=== PATIENT | female | born 1990 | race Caucasian/White ===

== ENCOUNTER 2017-03-06 15:04 | Inpatient (IN) | payer BC ==
[~2017-03-06] VITALS: Ht 162.6 cm; Wt 102.1 kg
[2017-03-06 15:10] VITALS: BP 130/81
--- NOTE | 2017-03-06 15:24 | Emergency Room Report ---
History of Present Illness General Chief Complaint: Skin Rash/Abscess Source: Patient Present Illness HPI 26-year-old female presents to the emergency department for recurrent hydradenitis suppurativa comprised of erythema, tenderness, and inflammation of the bilateral axilla that is not responsive to oral antibiotic medications. Patient has been referred for surgical intervention as well as IV antibiotics. She denies fevers, chills, nausea, vomiting. Patient denies . She denies taking blood thinning medications. Denies numbness tingling or loss of sensation or gross motor movements of the extremities, incontinence of bowel or bladder. Denies CP, Palpitations, LOC, AMS, dizziness, Changes in Vision, Sensation, paresthesias, or a sudden severe headache. Allergies: Coded Allergies: SULFA (SULFONAMIDE ANTIBIOTICS) (Verified Allergy, Unknown, 03/06/17) Patient History Past Medical History: see triage record Past Surgical History: none Pertinent Family History: none Now: No Reviewed Nursing Documentation: PMH: Agreed, PSxH: Agreed Nursing Documentation-PMH Hx Cardiac Problems: No - hidradenitis suppurativa Review of Systems All Other Systems: negative except mentioned in HPI Physical Exam Vital Signs Date Time Temp Pulse Resp B/P (MAP) Pulse Ox O2 Delivery O2 Flow Rate FiO2 03/06/17 15:10 98.6 89 20 130/81 99 Room Air Sp02 EP Interpretation: reviewed, normal General Appearance: no apparent distress, alert, GCS 15, non-toxic Head: normocephalic, atraumatic Eyes: bilateral eye normal inspection, bilateral eye PERRL ENT: hearing grossly normal, normal voice Neck: full range of motion Respiratory: lungs clear, normal breath sounds, speaking full sentences Cardiovascular #1: regular rate, rhythm Musculoskeletal: back normal, gait/station normal, normal range of motion, non- tender Neurologic: alert, oriented x3, responsive, motor strength/tone normal, sensory intact, speech normal, grossly normal Psychiatric: judgement/insight normal Skin: normal color, warm/dry, well hydrated, other - multiple abscesses with tunneling noted to the bilateral axilla. erythema and tenderness. Medical Decision Making PA Attestation Dr. rutledge is my supervising Physician whom patient management has been discussed with. Diagnostic Impression: Primary Impression: Hidradenitis suppurativa Additional Impression: Abscesses of both axillae ER Course 26-year-old female presents to the emergency department for recurrent hydradenitis suppurativa comprised of erythema, tenderness, and inflammation of the bilateral axilla that is not responsive to oral antibiotic medications. Patient has been referred for surgical intervention as well as IV antibiotics. She denies fevers, chills, nausea, vomiting. Patient denies . She denies taking blood thinning medications. Denies numbness tingling or loss of sensation or gross motor movements of the extremities, incontinence of bowel or bladder. Denies CP, Palpitations, LOC, AMS, dizziness, Changes in Vision, Sensation, paresthesias, or a sudden severe headache. Ddx considered but are not limited to cellulitis, hydradenitis Suppurativa, fracture, d/L, gout, abscess Vital signs: are WNL, pt. is afebrile H&PE are most consistent with Vulval hydradenitis Suppurativa requiring direct admission for surgical or IV abx management. ORDERS: -Gen. preop labwork: CBC, CMP, PT/PTT, Type and Screen.-- Lab results are unremarkable, patient is blood type B+, normal coags. Blood cultures are pending Ek Bpm NSR. ED INTERVENTIONS: -1 Liter NS IV. DISPOSITION: at this time pt. will be admitted to Dr. Huber for hydradenitis Suppurativa. Dr. Huber agreed to admit the pt. and to continue pt. care management. Labs Test 03/06/17 15:40 White Blood Count 8.6 K/UL (4.8-10.8) Red Blood Count 4.25 M/UL (4.20-5.40) Hemoglobin 13.1 G/DL (12.0-16.0) Hematocrit 41.2 % (37.0-47.0) Mean Corpuscular Volume 97 FL (80-99) Mean Corpuscular Hemoglobin 30.7 PG (27.0-31.0) Mean Corpuscular Hemoglobin Concent 31.7 G/DL (32.0-36.0) Red Cell Distribution Width 12.4 % (11.6-14.8) Platelet Count 387 K/UL (150-450) Mean Platelet Volume 6.4 FL (6.5-10.1) Neutrophils (%) (Auto) 55.8 % (45.0-75.0) Lymphocytes (%) (Auto) 35.4 % (20.0-45.0) Monocytes (%) (Auto) 6.0 % (1.0-10.0) Eosinophils (%) (Auto) 1.6 % (0.0-3.0) Basophils (%) (Auto) 1.2 % (0.0-2.0) Prothrombin Time 9.4 SEC (9.30-11.50) Prothromb Time International Ratio 0.9 (0.9-1.1) Activated Partial Thromboplast Time 25 SEC (23-33) Urine Color Pale yellow Urine Appearance Clear Urine pH 6 (4.5-8.0) Urine Specific [place] 1.020 (1.005-1.035) Urine Protein Negative (NEGATIVE) Urine Glucose (UA) Negative (NEGATIVE) Urine Ketones Negative (NEGATIVE) Urine Occult Blood 2+ (NEGATIVE) Urine Nitrite Negative (NEGATIVE) Urine Bilirubin Negative (NEGATIVE) Urine Urobilinogen Normal MG/DL (0.0-1.0) Urine Leukocyte Esterase Negative (NEGATIVE) Urine RBC 5-10 /HPF (0 - 2) Urine WBC 2-4 /HPF (0 - 2) Urine Squamous Epithelial Cells Few /LPF (NONE/OCC) Urine Bacteria Few /HPF (NONE) Urine HCG, Qualitative Negative Sodium Level 142 MMOL/L (136-145) Potassium Level 4.4 MMOL/L (3.5-5.1) Chloride Level 106 MMOL/L (98-107) Carbon Dioxide Level 25 MMOL/L (21-32) Anion Gap 11 mmol/L (5-15) Blood Urea Nitrogen 12 mg/dL (7-18) Creatinine 0.8 MG/DL (0.55-1.30) Estimat Glomerular Filtration Rate > 60 mL/min (>60) Glucose Level 83 MG/DL (74-106) Lactic Acid Level 1.50 mmol/L (0.66-2.22) Calcium Level 9.0 MG/DL (8.5-10.1) Total Bilirubin 0.3 MG/DL (0.2-1.0) Aspartate Amino Transf (AST/SGOT) 37 U/L (15-37) Alanine Aminotransferase (ALT/SGPT) 24 U/L (12-78) Alkaline Phosphatase 66 U/L (46-116) Total Protein 8.7 G/DL (6.4-8.2) Albumin 3.5 G/DL (3.4-5.0) Globulin 5.2 g/dL Albumin/Globulin Ratio 0.7 (1.0-2.7) EKG Diagnostic Results EP Interpretation: Dr. Taylor Rate: normal - 80 bpm Rhythm: NSR ST Segments: no acute changes ASA given to the pt in ED: No PA Scribe Text this interpretation was scribed by KEILY Santiago Last Vital Signs Date Time Temp Pulse Resp B/P (MAP) Pulse Ox O2 Delivery O2 Flow Rate FiO2 03/06/17 15:10 98.6 89 20 130/81 99 Room Air Disposition: ADMITTED INPATIENT Condition: Serious Deepika Santiago Mar 06, 2017 15:24
[2017-03-06 16:26] LABS: BASOPHILS % (AUTO) 1.2 % (0.0-2.0); EOSINOPHILS % (AUTO) 1.6 % (0.0-3.0); HEMATOCRIT 41.2 % (37.0-47.0); HEMOGLOBIN 13.1 G/DL (12.0-16.0); LYMPHOCYTES % (AUTO) 35.4 % (20.0-45.0); MEAN CORPUSCULAR VOLUME 97 FL (80-99); NEUTROPHILS % (AUTO) 55.8 % (45.0-75.0); PLATELET COUNT 387 K/UL (150-450); RED BLOOD COUNT 4.25 M/UL (4.20-5.40); RED CELL DISTRIBUTION WIDTH 12.4 % (11.6-14.8); WHITE BLOOD COUNT 8.6 K/UL (4.8-10.8)
[2017-03-06 16:30] LABS: APPEARANCE,URINE CLEAR; BILIRUBIN, URINE NEGATIVE (NEGATIVE); COLOR,URINE PALE YELLOW; GLUCOSE, URINE (UA) NEGATIVE (NEGATIVE); KETONES,URINE NEGATIVE (NEGATIVE); LEUKOCYTE ESTERASE ,URINE NEGATIVE (NEGATIVE); NITRITE,URINE NEGATIVE (NEGATIVE); PH,URINE 6 (4.5-8.0); PROTEIN,URINE NEGATIVE (NEGATIVE); UROBILINOGEN,URINE NORMAL MG/DL (0.0-1.0)
[2017-03-06 16:33] LABS: ANION GAP 11 mmol/L (5-15); BLOOD UREA NITROGEN 12 mg/dL (7-18); CARBON DIOXIDE 25 MMOL/L (21-32); CHLORIDE 106 MMOL/L (98-107); CREATININE 0.8 MG/DL (0.55-1.30); POTASSIUM 4.4 MMOL/L (3.5-5.1); SODIUM 142 MMOL/L (136-145)
[2017-03-06 16:34] LABS: INR 0.9 (0.9-1.1)
[2017-03-06 16:39] LABS: ALANINE AMINOTRANSFERASE 24 U/L (12-78); ALBUMIN 3.5 G/DL (3.4-5.0); ALBUMIN/GLOBULIN RATIO 0.7 (1.0-2.7); ALKALINE PHOSPHATASE 66 U/L (46-116); ASPARTATE AMINO TRANSFERASE 37 U/L (15-37); BILIRUBIN,TOTAL 0.3 MG/DL (0.2-1.0)
[2017-03-06] MEDS ORDERED: [UNRECOGNIZED DRUG - REMARK] (17:25)
--- NOTE | 2017-03-06 17:34 | History and Physical ---
History of Present Illness General Date patient seen: Mar 06, 2017 Time patient seen: 17:34 Reason for Hospitalization: Abscess Present Illness HPI 26y/o female with pmh of hiradenitis suppurative who presents with worsening b/ l axillary swelling/pain/redness/drainage. Pt w/ history of HS for many years. She has tried accutane and multiple different antibiotics without effect. Most recently had worsening of symptoms of b/l axillary w/ increased pain/swelling/ redness and drainage. Denies f/c, n/v, d/c, chest pain, SOB. Pt states able to walk several blocks and climb at least a flight of stairs w/o chest pain or SOB. Allergies: Coded Allergies: SULFA (SULFONAMIDE ANTIBIOTICS) (Verified Allergy, Unknown, 03/06/17) Medication History Miscellaneous Medications ["Bcp"], (Reported) Patient History History Provided By: Patient, Family Member, Medical Record, PMD Healthcare decision maker Resuscitation status Advanced Directive on File Past Medical/Surgical History Past Medical/Surgical History: (1) Hidradenitis suppurativa Family History Family History: DM2 HTN Social History Social History: (1) No significant social history Review of Systems ROS Narrative CONSTITUTIONAL: No weight loss, fever, chills, weakness or fatigue. HEENT: Eyes: No visual loss, blurred vision, double vision or yellow sclerae. Ears, Nose, Throat: No hearing loss, sneezing, congestion, runny nose or sore throat. SKIN: No rash or itching. CARDIOVASCULAR: No chest pain, chest pressure or chest discomfort. No palpitations or edema. RESPIRATORY: No shortness of breath, cough or sputum. GASTROINTESTINAL: No anorexia, nausea, vomiting or diarrhea. No abdominal pain or blood. NEUROLOGICAL: No headache, dizziness, syncope, paralysis, ataxia, numbness or tingling in the extremities. No change in bowel or bladder control. MUSCULOSKELETAL: No muscle, back pain, joint pain or stiffness. HEMATOLOGIC: No anemia, bleeding or bruising. LYMPHATICS: No enlarged nodes. No history of splenectomy. PSYCHIATRIC: No history of depression or anxiety. ENDOCRINOLOGIC: No reports of sweating, cold or heat intolerance. No polyuria or polydipsia. ALLERGIES: No history of asthma, hives, eczema or rhinitis. Physical Exam Physical Exam Narrative General: alert, cooperative, no distress, appears stated age Head: normocephalic, without obvious abnormality, atraumatic Eyes: conjunctivae/corneas clear. PERRL, EOM's intact Throat: lips, mucosa, and tongue normal. MMM Neck: supple, symmetrical, trachea midline, and no JVD Lungs: clear to auscultation bilaterally Heart: regular rate and rhythm, S1, S2 normal, no murmur, click, rub or gallop Abdomen: soft, non-tender, non-distended, bowel sounds normal; Extremities: extremities normal, atraumatic, no cyanosis or edema Pulses: 2+ and symmetric Skin: skin color, texture, turgor normal; +b/l axillary HS lesions Neurologic: grossly normal, no focal deficits Last 24 Hour Vital Signs Date Time Temp Pulse Resp B/P (MAP) Pulse Ox O2 Delivery O2 Flow Rate FiO2 03/06/17 15:10 98.6 89 20 130/81 99 Room Air 03/06/17 15:10 98.6 89 20 130/81 99 Room Air Laboratory Tests Test 03/06/17 15:40 White Blood Count 8.6 K/UL (4.8-10.8) Red Blood Count 4.25 M/UL (4.20-5.40) Hemoglobin 13.1 G/DL (12.0-16.0) Hematocrit 41.2 % (37.0-47.0) Mean Corpuscular Volume 97 FL (80-99) Mean Corpuscular Hemoglobin 30.7 PG (27.0-31.0) Mean Corpuscular Hemoglobin Concent 31.7 G/DL (32.0-36.0) L Red Cell Distribution Width 12.4 % (11.6-14.8) Platelet Count 387 K/UL (150-450) Mean Platelet Volume 6.4 FL (6.5-10.1) L Neutrophils (%) (Auto) 55.8 % (45.0-75.0) Lymphocytes (%) (Auto) 35.4 % (20.0-45.0) Monocytes (%) (Auto) 6.0 % (1.0-10.0) Eosinophils (%) (Auto) 1.6 % (0.0-3.0) Basophils (%) (Auto) 1.2 % (0.0-2.0) Prothrombin Time 9.4 SEC (9.30-11.50) Prothromb Time International Ratio 0.9 (0.9-1.1) Activated Partial Thromboplast Time 25 SEC (23-33) Urine Color Pale yellow Urine Appearance Clear Urine pH 6 (4.5-8.0) Urine Specific [place] 1.020 (1.005-1.035) Urine Protein Negative (NEGATIVE) Urine Glucose (UA) Negative (NEGATIVE) Urine Ketones Negative (NEGATIVE) Urine Occult Blood 2+ (NEGATIVE) H Urine Nitrite Negative (NEGATIVE) Urine Bilirubin Negative (NEGATIVE) Urine Urobilinogen Normal MG/DL (0.0-1.0) Urine Leukocyte Esterase Negative (NEGATIVE) Urine RBC 5-10 /HPF (0 - 2) H Urine WBC 2-4 /HPF (0 - 2) Urine Squamous Epithelial Cells Few /LPF (NONE/OCC) Urine Bacteria Few /HPF (NONE) Urine HCG, Qualitative Negative Sodium Level 142 MMOL/L (136-145) Potassium Level 4.4 MMOL/L (3.5-5.1) Chloride Level 106 MMOL/L (98-107) Carbon Dioxide Level 25 MMOL/L (21-32) Anion Gap 11 mmol/L (5-15) Blood Urea Nitrogen 12 mg/dL (7-18) Creatinine 0.8 MG/DL (0.55-1.30) Estimat Glomerular Filtration Rate > 60 mL/min (>60) Glucose Level 83 MG/DL (74-106) Lactic Acid Level 1.50 mmol/L (0.66-2.22) Calcium Level 9.0 MG/DL (8.5-10.1) Total Bilirubin 0.3 MG/DL (0.2-1.0) Aspartate Amino Transf (AST/SGOT) 37 U/L (15-37) Alanine Aminotransferase (ALT/SGPT) 24 U/L (12-78) Alkaline Phosphatase 66 U/L (46-116) Total Protein 8.7 G/DL (6.4-8.2) H Albumin 3.5 G/DL (3.4-5.0) Globulin 5.2 g/dL Albumin/Globulin Ratio 0.7 (1.0-2.7) L Height (Feet): 5 Height (Inches): 4.00 Weight (Pounds): 225 Assessment/Plan Problem List: (1) Abscesses of both axillae ICD Codes: L02.411 - Cutaneous abscess of right axilla; L02.412 - Cutaneous abscess of left axilla SNOMED: 22653114 (2) Hidradenitis suppurativa ICD Codes: L73.2 - Hidradenitis suppurativa SNOMED: 73865830 Status: stable Assessment/Plan Admit inpt Surgery consulted Start IV antibiotics F/u cultures Wound care per surgery Pain control, bowel regimen Supportive care If patient is required to have surgery, based on the patient's medical history, and other available ancillary data, the patient is a LOW risk for an INTERMEDIATE risk procedure. Per the most recent ACC/AHA guidelines, the patient does not need any further cardiopulmonary testing prior to the procedure and there do not appear to be any clear medical contraindications to proceeding with the proposed procedure. METs>4 DVT ppx: SCDs FULL CODE D/w pt, RN, surgery regarding mgmt and dispo Emani Morelos M.D. Mar 06, 2017 17:34
[2017-03-06] MEDS ORDERED: Acetaminophen 650 MG SUPP RECTAL PRN (17:45)
[2017-03-06] MEDS ORDERED: Morphine Sulfate 4mg/ml Inj IVP PRN (17:45)
[2017-03-06] MEDS ORDERED: Morphine Sulfate 2mg/ml Inj IVP PRN (17:45)
[2017-03-06] MEDS ORDERED: Mylanta II UD 30ml ORAL PRN (17:45)
[2017-03-06 20:00] VITALS: BP 125/71
[2017-03-06 21:00] VITALS: BP 128/70
[2017-03-06] MEDS ORDERED: Zolpidem 5mg tab ORAL PRN (21:00)
[2017-03-06] MEDS ORDERED: Miralax 17gm pkt ORAL PRN (21:00)
[2017-03-06] MEDS: Docusate 100mg cap ORAL SCH (22:10)
[2017-03-06] MEDS ORDERED: ceFAZolin 1gm/50ml Premix 50 ML IV SCH (23:00)
[2017-03-07] VITALS (12 sets, daily range): BP systolic 110–146; BP diastolic 63–77
[2017-03-07] MEDS ORDERED: ceFAZolin 1gm in D5W 55ml IVPB SCH ×2
[2017-03-07] MEDS ORDERED: ceFAZolin 1gm/50ml Premix 50 ML IV SCH
[2017-03-07] MEDS: ceFAZolin 1gm in D5W 55ml IVP SCH ×3 (02:46→17:25)
[2017-03-07] MEDS: D5 1/2NS 1,000 ML IV SCH ×2 (05:50→19:20)
[2017-03-07] MEDS ORDERED: fentaNYL 100 mcg/2 mL IV ONE (08:00)
[2017-03-07] MEDS ORDERED: Succinylcholine 20mg/ml 10ml vial ONE (08:00)
[2017-03-07] MEDS ORDERED: Morphine Sulfate 10mg/ml Inj ONE (08:00)
[2017-03-07] MEDS ORDERED: Glycopyrrolate 0.2mg/ml 1ml Vial ONE (08:00)
[2017-03-07] MEDS ORDERED: Midazolam 2mg/2ml Inj ONE (08:00)
[2017-03-07] MEDS ORDERED: NS Irrig 1000ml ONE (08:00)
[2017-03-07] MEDS ORDERED: Neostigmine 1mg/ml 10ml Inj ONE (08:00)
[2017-03-07] MEDS ORDERED: Ketorolac 30mg Inj ONE (08:00)
[2017-03-07] MEDS ORDERED: Sterile Water Irrig 1000ml IRRIG ONE (08:00)
[2017-03-07] MEDS ORDERED: LR 1000ml ONE (08:00)
[2017-03-07] MEDS ORDERED: Propofol 200mg/20ml IV ONE (08:00)
[2017-03-07] MEDS ORDERED: Nimbex 2mg/ml Inj 10ML IVP ONE (08:00)
[2017-03-07] MEDS: Docusate 100mg cap ORAL SCH ×2 (09:00→21:00)
[2017-03-07] MEDS ORDERED: TransDerm Scop 1mg/72HR Patch TDERMAL ONE ×2 (10:45→11:10)
--- NOTE | 2017-03-07 10:54 | General Progress Note ---
Assessment/Plan Problem List: (1) Abscesses of both axillae ICD Codes: L02.411 - Cutaneous abscess of right axilla; L02.412 - Cutaneous abscess of left axilla SNOMED: 98355769 (2) Hidradenitis suppurativa ICD Codes: L73.2 - Hidradenitis suppurativa SNOMED: 23401752 Status: stable Assessment/Plan Appreciate surgery rec's NPO for OR today Wound care per surgery Cont IV abx F/u cultures Pain control, bowel regimen Supportive care DVT ppx: SCDs FULL CODE D/w pt/family, RN, SW/CM, surgery regarding mgmt and dispo Subjective Date patient seen: Mar 07, 2017 Time patient seen: 10:54 ROS Limited/Unobtainable: No Constitutional: Reports: no symptoms HEENT: Reports: no symptoms Cardiovascular: Reports: no symptoms Respiratory: Reports: no symptoms Gastrointestinal/Abdominal: Reports: no symptoms Genitourinary: Reports: no symptoms Neurologic/Psychiatric: Reports: no symptoms Endocrine: Reports: no symptoms Hematologic/Lymphatic: Reports: no symptoms Allergies: Coded Allergies: SULFA (SULFONAMIDE ANTIBIOTICS) (Verified Allergy, Unknown, 03/06/17) All Systems: reviewed and negative except above Subjective No acute o/n events NPO for OR today Pt doing well. Denies f/c, n/v, d/c, chest pain, SOB Objective Last 24 Hour Vital Signs Date Time Temp Pulse Resp B/P (MAP) Pulse Ox O2 Delivery O2 Flow Rate FiO2 03/07/17 08:00 97.9 68 20 110/64 98 03/07/17 04:00 97.9 70 16 121/64 98 Room Air 03/07/17 00:00 98.0 16 120/69 98 Room Air 03/06/17 21:00 97.9 16 128/70 03/06/17 20:00 97.7 84 18 125/71 97 03/06/17 19:23 98.6 89 20 130/81 99 Room Air 03/06/17 15:10 98.6 89 20 130/81 99 Room Air 03/06/17 15:10 98.6 89 20 130/81 99 Room Air Intake and Output 03/06/17 03/07/17 19:00 07:00 Intake Total 1000 ml 75 ml Balance 1000 ml 75 ml Intake Oral 0 ml IV Total 1000 ml 75 ml Other 0 ml # Voids 1 Laboratory Tests 03/06/17 15:40: White Blood Count 8.6, Red Blood Count 4.25, Hemoglobin 13.1, Hematocrit 41.2, Mean Corpuscular Volume 97, Mean Corpuscular Hemoglobin 30.7, Mean Corpuscular Hemoglobin Concent 31.7L, Red Cell Distribution Width 12.4, Platelet Count 387, Mean Platelet Volume 6.4L, Neutrophils (%) (Auto) 55.8, Lymphocytes (%) (Auto) 35.4, Monocytes (%) (Auto) 6.0, Eosinophils (%) (Auto) 1.6, Basophils (%) (Auto ) 1.2, Prothrombin Time 9.4, Prothromb Time International Ratio 0.9, Activated Partial Thromboplast Time 25, Urine Color Pale yellow, Urine Appearance Clear, Urine pH 6, Urine Specific [place] 1.020, Urine Protein Negative, Urine Glucose (UA) Negative, Urine Ketones Negative, Urine Occult Blood 2+H, Urine Nitrite Negative, Urine Bilirubin Negative, Urine Urobilinogen Normal, Urine Leukocyte Esterase Negative, Urine RBC 5-10H, Urine WBC 2-4, Urine Squamous Epithelial Cells Few, Urine Bacteria Few, Urine HCG, Qualitative Negative, Sodium Level 142 , Potassium Level 4.4, Chloride Level 106, Carbon Dioxide Level 25, Anion Gap 11 , Blood Urea Nitrogen 12, Creatinine 0.8, Estimat Glomerular Filtration Rate > 60, Glucose Level 83, Lactic Acid Level 1.50, Calcium Level 9.0, Total Bilirubin 0.3, Aspartate Amino Transf (AST/SGOT) 37, Alanine Aminotransferase ( ALT/SGPT) 24, Alkaline Phosphatase 66, Total Protein 8.7H, Albumin 3.5, Globulin 5.2, Albumin/Globulin Ratio 0.7L Height (Feet): 5 Height (Inches): 4.00 Weight (Pounds): 225 Objective General: alert, cooperative, no distress, appears stated age Head: normocephalic, without obvious abnormality, atraumatic Eyes: conjunctivae/corneas clear. PERRL, EOM's intact Throat: lips, mucosa, and tongue normal. MMM Neck: supple, symmetrical, trachea midline, and no JVD Lungs: clear to auscultation bilaterally Heart: regular rate and rhythm, S1, S2 normal, no murmur, click, rub or gallop Abdomen: soft, non-tender, non-distended, bowel sounds normal; no masses or organomegaly Extremities: extremities normal, atraumatic, no cyanosis or edema Pulses: 2+ and symmetric Skin: skin color, texture, turgor normal; +b/l axillary HS lesions Neurologic: grossly normal, no focal deficits Emani Morelos M.D. Mar 07, 2017 10:54
[2017-03-07] MEDS ORDERED: Bacitracin 50000 Units Vial ONE (11:27)
[2017-03-07] MEDS ORDERED: EPINEPHrine 1mg/1ml Amp ONE (11:27)
[2017-03-07] MEDS ORDERED: Lidocaine 1% 10mg/ml/EPI 0.01mg/ml 50ml INJ ONE (11:27)
[2017-03-07] MEDS ORDERED: NeoSporin Gu Irrig 1ml Amp IRRIG ONE (11:27)
--- NOTE | 2017-03-07 11:37 | Pre-Procedure Note/Attestation ---
Pre-Procedure Note/Attestation Complete Prior to Procedure Planned Procedure: bilateral Procedure Narrative: Bilateral axillary debridement and flap elevation Attestation I attest that I discussed the nature of the procedure; its benefits; risks and complications; and alternatives (and the risks and benefits of such alternatives ), prior to the procedure, with the patient (or the patient's legal retail service representative). I attest that, if there was a reasonable possibility of needing a blood transfusion, the patient (or the patient's legal retail service representative) was given the [facility] standardized written summary, pursuant to the Prasanna Sarthak Blood Safety Act ([place] Health and Safety Code # 1645, as amended). I attest that I re-evaluated the patient just prior to the surgery and that there has been no change in the patient's H&P, except as documented below: ABEBE ROMEO Mar 07, 2017 11:37
[2017-03-07] MEDS ORDERED: LR 1000ml 1,000 ML IVLG SCH (12:44)
--- NOTE | 2017-03-07 12:44 | Anethesia Preoperative Eval ---
Anesthesia Pre-op PMH/ROS General Date of Evaluation: Mar 07, 2017 Time of Evaluation: 11:20 Anesthesiologist: Aracelis ASA Score: ASA 2 Mallampati Score Class I : Soft palate, uvula, fauces, pillars visible Class II: Soft palate, uvula, fauces visible Class III: Soft palate, base of uvula visible Class IV: Only hard plate visible Mallampati Classification: Class II Surgeon: Dorothy Diagnosis: Recurrent HS Surgical Procedure: Excision of bilateral axillary hydradenitis Anesthesia History: none Family History: no anesthesia problems Allergies: Coded Allergies: SULFA (SULFONAMIDE ANTIBIOTICS) (Verified Allergy, Unknown, 03/06/17) Medications: see eMAR Past Medical History Cardiovascular: Denies: HTN, CAD, [place], valve dz, arrhythmia, other Pulmonary: Denies: asthma, COPD, OLGA, other Gastrointestinal/Genitourinary: Reports: GERD - mild Neurologic/Psychiatric: Reports: depression/anxiety, Denies: dementia, CVA, TIA, other Endocrine: Denies: DM, hypothyroidism, steroids, other HEENT: Denies: cataract (L), cataract (R), glaucoma, CAHUILLA (L), CAHUILLA (R), other Hematology/Immune: Denies: anemia, DVT, bleeding disorder, other Musculoskeletal/Integumentary: Denies: OA, RA, DJD, DDD, edema, other Other: obesity PMH Narrative: as above PSxH Narrative: Myringotomy as a child Anesthesia Pre-op Phys. Exam Physician Exam Last Vital Signs Date Time Temp Pulse Resp B/P (MAP) Pulse Ox O2 Delivery O2 Flow Rate FiO2 03/07/17 08:00 97.9 68 20 110/64 98 03/07/17 04:00 Room Air Constitutional: NAD Neurologic: CN 2-12 intact Cardiovascular: RRR, no M/R/G Respiratory: CTA Gastrointestinal: other - obesity Airway Exam Mallampati Score: Class II MO: full Neck: flexible ROM: full Teeth: intact Dentures: no upper, no lower Anesthesia Pre-op A/P Labs Hematology Test 03/06/17 15:40 White Blood Count 8.6 K/UL (4.8-10.8) Red Blood Count 4.25 M/UL (4.20-5.40) Hemoglobin 13.1 G/DL (12.0-16.0) Hematocrit 41.2 % (37.0-47.0) Mean Corpuscular Volume 97 FL (80-99) Mean Corpuscular Hemoglobin 30.7 PG (27.0-31.0) Mean Corpuscular Hemoglobin Concent 31.7 G/DL (32.0-36.0) L Red Cell Distribution Width 12.4 % (11.6-14.8) Platelet Count 387 K/UL (150-450) Mean Platelet Volume 6.4 FL (6.5-10.1) L Neutrophils (%) (Auto) 55.8 % (45.0-75.0) Lymphocytes (%) (Auto) 35.4 % (20.0-45.0) Monocytes (%) (Auto) 6.0 % (1.0-10.0) Eosinophils (%) (Auto) 1.6 % (0.0-3.0) Basophils (%) (Auto) 1.2 % (0.0-2.0) Coagulation Test 03/06/17 15:40 Prothrombin Time 9.4 SEC (9.30-11.50) Prothromb Time International Ratio 0.9 (0.9-1.1) Activated Partial Thromboplast Time 25 SEC (23-33) Chemistry Test 03/06/17 15:40 Sodium Level 142 MMOL/L (136-145) Potassium Level 4.4 MMOL/L (3.5-5.1) Chloride Level 106 MMOL/L (98-107) Carbon Dioxide Level 25 MMOL/L (21-32) Anion Gap 11 mmol/L (5-15) Blood Urea Nitrogen 12 mg/dL (7-18) Creatinine 0.8 MG/DL (0.55-1.30) Estimat Glomerular Filtration Rate > 60 mL/min (>60) Glucose Level 83 MG/DL (74-106) Lactic Acid Level 1.50 mmol/L (0.66-2.22) Calcium Level 9.0 MG/DL (8.5-10.1) Total Bilirubin 0.3 MG/DL (0.2-1.0) Aspartate Amino Transf (AST/SGOT) 37 U/L (15-37) Alanine Aminotransferase (ALT/SGPT) 24 U/L (12-78) Alkaline Phosphatase 66 U/L (46-116) Total Protein 8.7 G/DL (6.4-8.2) H Albumin 3.5 G/DL (3.4-5.0) Globulin 5.2 g/dL Albumin/Globulin Ratio 0.7 (1.0-2.7) L Urine Test Test 03/06/17 15:40 Urine HCG, Qualitative Negative Risk Assessment & Plan Assessment: ASA 2 Plan: GA with ETT PONV Prevention Status Change Before Surgery: No Pre-Antibiotics Drug: Ancef 1 gr Given Within 1 Hr of Incision: Yes Time Given: 12:02 CHARLY AVILA M.D. Mar 07, 2017 12:44
[2017-03-07] MEDS ORDERED: DiphenhydrAMINE 50mg/ml Inj IVP PRN (12:45)
[2017-03-07] MEDS ORDERED: Midazolam 2mg/2ml Inj IVP PRN (12:45)
[2017-03-07] MEDS ORDERED: Naloxone 0.4mg/ml Inj IV PRN (12:45)
[2017-03-07] MEDS ORDERED: Ketorolac 30mg Inj IV PRN (12:45)
[2017-03-07] MEDS ORDERED: Hydromorphone 0.5mg/0.5ml inj IVP PRN (12:45)
[2017-03-07] MEDS ORDERED: Meperidine 50mg/ml Inj(FOR RIGORS ONLY) IV PRN ×2 (12:45)
[2017-03-07] MEDS ORDERED: PCA Education Pamphlet MISC ONE (13:00)
[2017-03-07] MEDS ORDERED: Rate Change PCA 1 Each MISC PRN (13:00)
--- NOTE | 2017-03-07 13:44 | Operative Note - PDOC ---
Operative Note Operative Note Pre-op Diagnosis: Bilateral axillary hidradenitis Procedure: Bilateral axillary excision and flap elevation Surgeon: Dorothy [employer] Trucker: Lewis Specimen: yes Complications: none Condition: stable Drains: none Implant(s) used?: No ABEBE ROMEO Mar 07, 2017 13:44
--- NOTE | 2017-03-07 14:09 | Immediate Post-Op Evaluation ---
Immediate Post-Op Evalulation Immediate Post-Op Evalulation Procedure: Excision of bilateral axillary HS Date of Evaluation: Mar 07, 2017 Time of Evaluation: 14:08 IV Fluids: 1200 Blood Products: [id number] Estimated Blood Loss: 100 Urinary Output: none Blood Pressure Systolic: 146 Blood Pressure Diastolic: 62 Pulse Rate: 72 Respiratory Rate: 20 O2 Sat by Pulse Oximetry: 99 Temperature (Fahrenheit): 97.6 Pain Score (1-10): 2 Nausea: No Vomiting: No Complications none Patient Status: reacts, patent, extubated, none Hydration Status: adequate CHARLY AVILA M.D. Mar 07, 2017 14:09
[2017-03-07] MEDS: PCA HYDROmorphone 1mg/ml 30 ML IV PRN (14:33)
--- NOTE | 2017-03-07 15:33 | Operative Note - Dictated ---
DATE OF OPERATION: 03/07/2017 PREOPERATIVE DIAGNOSIS: Bilateral axillary hidradenitis suppurativa. POSTOPERATIVE DIAGNOSIS: Bilateral axillary hidradenitis suppurativa. PROCEDURES: 1. Radical excision of left-sided axillary hidradenitis. 2. Elevation of the thoracodorsal artery lateral chest wall flap for staged closure of left axillary wound. 3. Radical excision of right-sided axillary hidradenitis. 4. Elevation of a right-sided thoracodorsal artery flap to the lateral chest wall for staged closure of right axillary wound. SURGEON: Ifrah De La Cruz M.D. TECHNICAL SALES SUPPORT SPECIALIST: Isabell Saucedo M.D. ANESTHESIA: General. COMPLICATIONS: None. DRAINS: None. SPECIMEN: Included bilateral axillary tissue. DISPOSITION: Stable to the recovery room. INDICATIONS FOR SURGERY: This is a 26-year-old female, who was admitted to the emergency room for bilateral axillary pain and drainage associated with bilateral axillary hidradenitis. Upon evaluation by me, I felt that she was an appropriate candidate for excision and reconstruction in a staged manner. The reason for staging of the treatment is the presence of pus within the axillary tissue, which would increase the risk of postoperative wound infection if immediate reconstruction was pursued. She understood the risks and benefits of surgery and agreed to proceed. DETAILS OF THE OPERATION: The patient was brought to the operating room and laid in the supine position on the operating table. Her bilateral axilla were prepped and draped in a sterile and usual fashion. Preoperatively, the areas of disease were marked in both axillae and corresponding thoracodorsal artery flap was designed to fit the defect of the expected excision. We first began on the left side. The measurement of the left axillary hidradenitis bearing tissue was 13 x 9 cm and a corresponding flap of 7 x 13 cm was designed. Once the flap dimensions were confirmed, a #10 blade was then used to make the skin incision around the disease bearing tissue in the left axilla. Electrocautery was then used to radically excise the tissue all the way down to the level of the axillary fascia. Once the tissue was completely excised, the wound was copiously irrigated with pulse lavage. Hemostasis was achieved and we then proceeded to make the incision on the thoracodorsal artery flap along the lateral chest wall. A #10 blade was used to make the U-shaped incision all the way down to the level of latissimus muscle fascia. The flap was then elevated inferiorly to superiorly based off of perforators of the thoracodorsal artery. With the flap fully mobilized, we were able to then inset into the defect and noted that the flap dimensions were appropriate to fully cover the wound. However, given the presence of the pus within the wound, we felt that it was not appropriate for definitive flap inset at this time. As such, once hemostasis was achieved, the flap was then placed back in situ and was stapled back into the donor site and the advantage of this is also to allow us to delay the flap to see if there is any ischemic areas that will need to be debrided down the line when she does come back for definitive reconstruction within three to four days. Once this was done, the left axilla wound was packed and we turned our attention to the right axillary wound and in a similar fashion, the area of disease was marked out and measured to be 14 x 8 cm and a corresponding thoracodorsal artery flap along the lateral chest wall on the right side was also designed in a similar fashion as was done for the other side, were also pursued with 13 x 7 cm dimensions. A #10 blade was then used to make the right axillary skin incision and the electrocautery was then used to dissect all the way down to the level of the axillary fascia. The specimen was then removed on block and then once hemostasis was achieved, we then pursued the skin incision along the lateral chest wall for the elevation of the thoracodorsal artery flap. Dissection was carried down to the level of the latissimus muscle fascia to fully mobilized the flap. We dissected from inferior to superior direction and the flap was then noted to be perfused based off of perforators of the thoracodorsal artery flap. Once the flap was then fully mobilized, it was inset into the defect and noted to be adequately covering the area of the defect and again given the fact that this was an infected wound area, we decided that a staged reconstruction would be appropriate and so the flap was then placed back in situ with stable supervision and the right axillary defect was then further irrigated and hemostasis was achieved and both wounds were packed. The patient will be brought back to the operating room in three to four days to perform definitive reconstruction. She tolerated the procedure well. There were no complications. Ifrah De La Cruz M.D. DR: HAZEL JOB#: [id number] CC:
[2017-03-07] MEDS: PCA shift volume MISC SCH (19:19)
--- NOTE | 2017-03-07 19:30 | Consultation ---
DATE OF CONSULTATION: 03/06/2017 REASON FOR CONSULTATION: Bilateral axillary hidradenitis. HISTORY OF PRESENT ILLNESS: This is a 26-year-old patient admitted to the emergency room for bilateral axillary pain and drainage associated with hidradenitis. She was admitted by the medical team and evaluation by me and felt that she would be an appropriate candidate for surgical intervention. PAST MEDICAL HISTORY: Significant for morbid obesity and hidradenitis. PAST SURGICAL HISTORY: None. ALLERGIES: Include sulfa. MEDICATIONS: Include chronic use of antibiotics. PHYSICAL EXAMINATION: GENERAL: The patient is alert and oriented x3. HEART: Regular rate and rhythm. ABDOMEN: Soft, nontender, and nondistended. EXTREMITIES: Examination of bilateral axilla reveals multiple areas of abscesses with purulent drainage consistent with apparently stage III hidradenitis in both axillae. ASSESSMENT AND PLAN: This is a 26-year-old female who has advanced hidradenitis suppurativa in both axillae. She is a candidate for excision and reconstruction given the amount of pus present in the wound though she will not be a candidate for simultaneous reconstruction. She will undergo radical excision with flap elevation and a delayed closure within 3 to 4 days to allow for the infection to clear prior to definitive flap inset. She understands the plan and agrees to proceed. Ifrah De La Cruz M.D. DR: MAXIMILIAN JOB#: [id number] CC:
[2017-03-07] MEDS ORDERED: Zolpidem 5mg tab ORAL PRN (21:00)
[2017-03-07] MEDS: Heparin 5000 units/ml inj SUBQ SCH (21:00)
[2017-03-08] MEDS: D5 1/2NS 1,000 ML IV SCH ×2 (00:48→21:57)
[2017-03-08] MEDS: ceFAZolin 1gm in D5W 55ml IVP SCH ×3 (01:28→18:37)
[2017-03-08 04:56] VITALS: BP 113/67
[2017-03-08] MEDS: PCA shift volume MISC SCH ×2 (07:28→19:00)
[2017-03-08 08:37] VITALS: BP 126/81
[2017-03-08] MEDS: Docusate 100mg cap ORAL SCH ×2 (09:27→21:20)
[2017-03-08] MEDS: Heparin 5000 units/ml inj SUBQ SCH ×2 (09:30→21:23)
--- NOTE | 2017-03-08 10:46 | General Progress Note ---
Progress Note Progress Note Pt seen and examined. POD # 1 and doing well. Dressings intact. Will take down dressings in AM. Plan for definitive flap inset on Saturday. ABEBE Lanza MD Mar 08, 2017 10:46
[2017-03-08 11:44] VITALS: BP 132/72
[2017-03-08] MEDS: PCA HYDROmorphone 1mg/ml 30 ML IV PRN (14:53)
--- NOTE | 2017-03-08 16:14 | 48 Hour Post Anesthesia Eval ---
Post Anesthesia Evaluation Procedure: Excision of bilateral axillary HS Date of Evaluation: Mar 08, 2017 Time of Evaluation: 16:13 Blood Pressure Systolic: 116 0: 74 Pulse Rate: 68 Respiratory Rate: 20 Temperature (Fahrenheit): 97.8 O2 Sat by Pulse Oximetry: 98 Airway: patent Nausea: No Vomiting: No Pain Intensity: 3 Hydration Status: adequate Cardiopulmonary Status: stable Mental Status/LOC: patient returned to baseline Follow-up Care/Observations: n/a Post-Anesthesia Complications: none Follow-up care needed: N/A CHARLY AVILA M.D. Mar 08, 2017 16:14
[2017-03-08 16:22] VITALS: BP 117/72
--- NOTE | 2017-03-08 17:57 | General Progress Note ---
Assessment/Plan Problem List: (1) Abscesses of both axillae ICD Codes: L02.411 - Cutaneous abscess of right axilla; L02.412 - Cutaneous abscess of left axilla SNOMED: 14892650 (2) Hidradenitis suppurativa ICD Codes: L73.2 - Hidradenitis suppurativa SNOMED: 98759038 Status: stable Assessment/Plan Appreciate surgery rec's s/p bilateral axillary excision and flap elevation on 03/07/17 Wound care per surgery Cont IV abx F/u cultures Pain control, bowel regimen Supportive care DVT ppx: SCDs FULL CODE D/w pt/family, RN, SW/CM, surgery regarding mgmt and dispo Subjective Date patient seen: Mar 08, 2017 Time patient seen: 16:00 Constitutional: Reports: no symptoms HEENT: Reports: no symptoms Cardiovascular: Reports: no symptoms Respiratory: Reports: no symptoms Gastrointestinal/Abdominal: Reports: no symptoms Genitourinary: Reports: no symptoms Neurologic/Psychiatric: Reports: no symptoms Endocrine: Reports: no symptoms Hematologic/Lymphatic: Reports: no symptoms Allergies: Coded Allergies: SULFA (SULFONAMIDE ANTIBIOTICS) (Verified Allergy, Unknown, 03/06/17) Subjective No acute o/n events s/p bilateral axillary excision and flap elevation POD#1 Pt doing well. Denies f/c, n/v, d/c, chest pain, SOB Objective Last 24 Hour Vital Signs Date Time Temp Pulse Resp B/P (MAP) Pulse Ox O2 Delivery O2 Flow Rate FiO2 03/08/17 16:22 98.4 92 20 117/72 96 03/08/17 16:14 68 20 98 03/08/17 16:00 18 03/08/17 14:53 18 03/08/17 12:00 18 03/08/17 11:44 98.4 80 20 132/72 96 03/08/17 08:37 98.2 85 20 126/81 96 03/08/17 08:25 18 03/08/17 04:56 98.2 93 19 113/67 96 03/08/17 04:25 18 03/08/17 00:25 18 03/07/17 23:55 98.2 80 18 121/68 96 03/07/17 20:55 98.0 83 19 120/71 96 03/07/17 20:25 19 Intake and Output 03/07/17 03/08/17 19:00 07:00 Intake Total 2075 ml 1185 ml Output Total 100 ml Balance 1975 ml 1185 ml Intake Oral 240 ml 360 ml IV Total 1835 ml 825 ml Output Estimated Blood Loss 100 ml # Voids 3 # Bowel Movements 1 Height (Feet): 5 Height (Inches): 4.00 Weight (Pounds): 225 Objective General: alert, cooperative, no distress, appears stated age Head: normocephalic, without obvious abnormality, atraumatic Eyes: conjunctivae/corneas clear. PERRL, EOM's intact Throat: lips, mucosa, and tongue normal. MMM Neck: supple, symmetrical, trachea midline, and no JVD Lungs: clear to auscultation bilaterally Heart: regular rate and rhythm, S1, S2 normal, no murmur, click, rub or gallop Abdomen: soft, non-tender, non-distended, bowel sounds normal; no masses or organomegaly Extremities: extremities normal, atraumatic, no cyanosis or edema Pulses: 2+ and symmetric Skin: skin color, texture, turgor normal; dressings c/d/i Neurologic: grossly normal, no focal deficits Emani Morelos M.D. Mar 08, 2017 17:57
[2017-03-08 20:00] VITALS: BP 124/60
[2017-03-09] VITALS: BP 111/58
[2017-03-09] MEDS: ceFAZolin 1gm in D5W 55ml IVP SCH ×2 (01:37→10:27)
[2017-03-09 04:00] VITALS: BP 124/78
[2017-03-09] MEDS: PCA shift volume MISC SCH ×2 (07:03→19:00)
[2017-03-09 08:00] VITALS: BP 123/80
[2017-03-09] MEDS: Docusate 100mg cap ORAL SCH ×2 (09:15→20:47)
[2017-03-09] MEDS: D5 1/2NS 1,000 ML IV SCH (09:16)
[2017-03-09] MEDS: Heparin 5000 units/ml inj SUBQ SCH ×2 (09:17→20:49)
--- NOTE | 2017-03-09 09:29 | General Progress Note ---
Progress Note Progress Note Pt seen and examined. POD # 2 and doing well. Flaps are both alive and well. Plan on flap inset on saturday. ABEBE Lanza MD Mar 09, 2017 09:29
[2017-03-09] MEDS ORDERED: Rate Change PCA 1 Each MISC PRN (11:30)
[2017-03-09 11:47] VITALS: BP 131/75
--- NOTE | 2017-03-09 12:32 | Internal Med Progress Note ---
Subjective Physician Name Conor Lopez Attending Physician Celena Huber Current Medications Medications (Trade) Dose Ordered Sig/Luciano Route PRN Reason Start Time Stop Time Status Last Admin Dose Admin Acetaminophen (Tylenol) 650 mg Q4H PRN ORAL Mild Pain (Pain Scale 1-3) 03/06/17 17:45 04/05/17 17:44 Acetaminophen (Tylenol) 650 mg Q4H PRN ORAL FEVER>100.5 03/07/17 13:00 04/06/17 12:59 Acetaminophen (Tylenol) 650 mg Q4H PRN RECTAL Mild Pain (Pain Scale 1-3) 03/06/17 17:45 04/05/17 17:44 Al Hydroxide/Mg Hydroxide (Mylanta II) 30 ml Q6H PRN ORAL dyspepsia 03/06/17 17:45 04/05/17 17:44 Bisacodyl (Dulcolax) 10 mg HSPRN PRN RECTAL Constipation 03/06/17 21:00 04/05/17 20:59 Cefazolin Sodium 50 ml @ 100 mls/hr Q8H IV 03/09/17 18:00 03/16/17 17:59 Dextrose (Dextrose 50%) STAT PRN IV Hypoglycemia 03/06/17 17:45 04/05/17 17:44 Dextrose/Sodium Chloride 1,000 ml @ 75 mls/hr [id number] IV 03/07/17 06:00 04/06/17 05:59 03/09/17 09:16 Diphenhydramine HCl (Benadryl) 25 mg Q6H PRN ORAL Itching/Pruritis 03/06/17 17:45 04/05/17 17:44 03/08/17 22:12 Docusate Sodium (Colace) 100 mg EVERY 12 HOURS ORAL 03/06/17 21:00 04/05/17 20:59 03/09/17 09:15 Heparin Sodium (Porcine) (Heparin 5000 units/ml) 5,000 units EVERY 12 HOURS SUBQ 03/07/17 21:00 04/06/17 20:59 03/09/17 09:17 Hydromorphone HCl 30 ml @ 0 mls/hr Q24H PRN IV For Pain 03/09/17 13:00 03/11/17 23:59 Hydromorphone HCl (Dilaudid) 2 mg Q3H PRN SUBQ Severe Pain (Pain Scale 7-10) 03/09/17 12:45 03/11/17 23:59 Hydromorphone HCl (Dilaudid) 2 mg Q4H PRN IVP Moderate Pain (Pain Scale 4-6) 03/09/17 12:45 03/11/17 23:59 Miscellaneous Medication (FLIGHT ENGINEER HELICOPTER Rate Change) 1 ea DAILY PRN MISC rate change 03/09/17 11:30 03/11/17 23:59 Miscellaneous Medication (FLIGHT ENGINEER HELICOPTER shift volume) 1 ea Q12HR@0700,1900 MISC 03/09/17 19:00 03/11/17 23:59 Naloxone HCl (Narcan) 0.1 mg PRN IV PER PROTOCOL 03/07/17 12:45 03/11/17 23:59 Ondansetron HCl (Zofran) 4 mg Q6H PRN IVP Nausea & Vomiting 03/07/17 13:00 04/06/17 12:59 03/09/17 09:15 Polyethylene Glycol (Miralax) 17 gm HSPRN PRN ORAL Constipation 03/06/17 21:00 04/05/17 20:59 Zolpidem Tartrate (Ambien) 5 mg DAILYPRN PRN ORAL Insomnia 03/07/17 21:00 03/14/17 20:59 Allergies: Coded Allergies: SULFA (SULFONAMIDE ANTIBIOTICS) (Verified Allergy, Unknown, 03/06/17) Objective Last Vital Signs Date Time Temp Pulse Resp B/P (MAP) Pulse Ox O2 Delivery O2 Flow Rate FiO2 03/09/17 11:47 98.4 82 20 131/75 100 Room Air 03/07/17 16:10 2.0 Microbiology Date/Time Source Procedure Growth Status 03/06/17 16:00 Blood Blood Culture - Preliminary NO GROWTH AFTER 48 HOURS Resulted 03/06/17 15:40 Blood Blood Culture - Preliminary NO GROWTH AFTER 48 HOURS Resulted Intake and Output 03/08/17 03/09/17 19:00 07:00 Intake Total 1475 ml 1110 ml Balance 1475 ml 1110 ml Intake Oral 820 ml 360 ml IV Total 655 ml 750 ml # Voids 3 1 Assessment/Plan Assessment/Plan Assessment/Plan Assessment/Plan Problem List: (1) Abscesses of both axillae ICD Codes: L02.411 - Cutaneous abscess of right axilla; L02.412 - Cutaneous abscess of left axilla SNOMED: 43836917 (2) Hidradenitis suppurativa ICD Codes: L73.2 - Hidradenitis suppurativa SNOMED: 40018731 Status: stable Assessment/Plan Appreciate surgery rec's s/p bilateral axillary excision and flap elevation on 03/07/17 Wound care per surgery Cont IV abx F/u cultures Pain control, bowel regimen Supportive care DVT ppx: SCDs FULL CODE D/w pt/family, RN, SW/CM, surgery regarding mgmt and dispo Subjective Subjective Date patient seen: Mar 08, 2017 Time patient seen: 16:00 Constitutional: Reports: no symptoms HEENT: Reports: no symptoms Cardiovascular: Reports: no symptoms Respiratory: Reports: no symptoms Gastrointestinal/Abdominal: Reports: no symptoms Genitourinary: Reports: no symptoms Neurologic/Psychiatric: Reports: no symptoms Endocrine: Reports: no symptoms Hematologic/Lymphatic: Reports: no symptoms Allergies: Coded Allergies: SULFA (SULFONAMIDE ANTIBIOTICS) (Verified Allergy, Unknown, 03/06/17) Subjective No acute o/n events s/p bilateral axillary excision and flap elevation POD#2 Pt doing well. Denies f/c, n/v, d/c, chest pain, SOB Objective Objective Last 24 Hour Vital Signs Date Time Temp Pulse Resp B/P (MAP) Pulse Ox O2 Delivery O2 Flow Rate FiO2 03/08/17 16:22 98.4 92 20 117/72 96 03/08/17 16:14 68 20 98 03/08/17 16:00 18 03/08/17 14:53 18 03/08/17 12:00 18 03/08/17 11:44 98.4 80 20 132/72 96 03/08/17 08:37 98.2 85 20 126/81 96 03/08/17 08:25 18 03/08/17 04:56 98.2 93 19 113/67 96 03/08/17 04:25 18 03/08/17 00:25 18 03/07/17 23:55 98.2 80 18 121/68 96 03/07/17 20:55 98.0 83 19 120/71 96 03/07/17 20:25 19 Intake and Output 03/07/17 03/08/17 19:00 07:00 Intake Total 2075 ml 1185 ml Output Total 100 ml Balance 1975 ml 1185 ml Intake Oral 240 ml 360 ml IV Total 1835 ml 825 ml Output Estimated Blood Loss 100 ml # Voids 3 # Bowel Movements 1 Height (Feet): 5 Height (Inches): 4.00 Weight (Pounds): 225 Objective General: alert, cooperative, no distress, appears stated age Head: normocephalic, without obvious abnormality, atraumatic Eyes: conjunctivae/corneas clear. PERRL, EOM's intact Throat: lips, mucosa, and tongue normal. MMM Neck: supple, symmetrical, trachea midline, and no JVD Lungs: clear to auscultation bilaterally Heart: regular rate and rhythm, S1, S2 normal, no murmur, click, rub or gallop Abdomen: soft, non-tender, non-distended, bowel sounds normal; no masses or organomegaly Extremities: extremities normal, atraumatic, no cyanosis or edema Pulses: 2+ and symmetric Skin: skin color, texture, turgor normal; dressings c/d/i Neurologic: grossly normal, no focal deficits Conor Lopez M.D. Mar 09, 2017 12:32
--- NOTE | 2017-03-09 15:27 | Cardiology Report ---
APPROVED REPORT EKG Measurement Heart [id number] Normal sinus rhythm Cannot rule out Anterior infarct, age undetermined Abnormal ECG
[2017-03-09] MEDS: PCA HYDROmorphone 1mg/ml 30 ML IV PRN (15:31)
[2017-03-09 16:00] VITALS: BP 118/73
[2017-03-09] MEDS: ceFAZolin 1gm/50ml Premix 50 ML IV SCH (17:36)
[2017-03-09] MEDS ORDERED: D5 1/2NS 1000ml IV ONE (18:51)
[2017-03-09] MEDS ORDERED: Tubing IV Secondary IV ONE (18:51)
[2017-03-09 20:00] VITALS: BP 124/84
[2017-03-10 00:03] VITALS: BP 112/62
[2017-03-10] MEDS: ceFAZolin 1gm/50ml Premix 50 ML IV SCH ×3 (01:34→18:29)
[2017-03-10] MEDS: D5 1/2NS 1,000 ML IV SCH ×2 (01:34→14:29)
[2017-03-10 04:10] VITALS: BP 127/63
[2017-03-10] MEDS: PCA shift volume MISC SCH ×2 (07:00→19:10)
[2017-03-10 07:44] LABS: BASOPHILS % (AUTO) 0.5 % (0.0-2.0); EOSINOPHILS % (AUTO) 1.9 % (0.0-3.0); HEMATOCRIT 34.9 % (37.0-47.0); HEMOGLOBIN 11.8 G/DL (12.0-16.0); LYMPHOCYTES % (AUTO) 33.4 % (20.0-45.0); MEAN CORPUSCULAR VOLUME 97 FL (80-99); MONOCYTES % (AUTO) 8.5 % (1.0-10.0); NEUTROPHILS % (AUTO) 55.8 % (45.0-75.0); PLATELET COUNT 339 K/UL (150-450); RED BLOOD COUNT 3.62 M/UL (4.20-5.40); RED CELL DISTRIBUTION WIDTH 12.6 % (11.6-14.8); WHITE BLOOD COUNT 9.8 K/UL (4.8-10.8)
[2017-03-10 08:00] VITALS: BP 134/83
[2017-03-10 08:14] LABS: ANION GAP 9 mmol/L (5-15); BLOOD UREA NITROGEN 8 mg/dL (7-18); CALCIUM 8.7 MG/DL (8.5-10.1); CARBON DIOXIDE 26 MMOL/L (21-32); CHLORIDE 105 MMOL/L (98-107); CREATININE 0.7 MG/DL (0.55-1.30); POTASSIUM 4.1 MMOL/L (3.5-5.1); SODIUM 140 MMOL/L (136-145)
[2017-03-10] MEDS: Docusate 100mg cap ORAL SCH ×2 (09:22→21:42)
[2017-03-10] MEDS: Heparin 5000 units/ml inj SUBQ SCH ×2 (09:28→21:45)
[2017-03-10 12:00] VITALS: BP 139/83
[2017-03-10] MEDS ORDERED: Tubing IV Secondary IV ONE (14:37)
[2017-03-10 16:00] VITALS: BP 132/81
--- NOTE | 2017-03-10 19:02 | Internal Med Progress Note ---
Subjective Physician Name Conor Lopez Attending Physician Celena Huber Current Medications Medications (Trade) Dose Ordered Sig/Luciano Route PRN Reason Start Time Stop Time Status Last Admin Dose Admin Acetaminophen (Tylenol) 650 mg Q4H PRN ORAL Mild Pain (Pain Scale 1-3) 03/06/17 17:45 04/05/17 17:44 Acetaminophen (Tylenol) 650 mg Q4H PRN ORAL FEVER>100.5 03/07/17 13:00 04/06/17 12:59 Acetaminophen (Tylenol) 650 mg Q4H PRN RECTAL Mild Pain (Pain Scale 1-3) 03/06/17 17:45 04/05/17 17:44 Al Hydroxide/Mg Hydroxide (Mylanta II) 30 ml Q6H PRN ORAL dyspepsia 03/06/17 17:45 04/05/17 17:44 Bisacodyl (Dulcolax) 10 mg HSPRN PRN RECTAL Constipation 03/06/17 21:00 04/05/17 20:59 Cefazolin Sodium 50 ml @ 100 mls/hr Q8H IV 03/09/17 18:00 03/16/17 17:59 03/10/17 18:29 Dextrose (Dextrose 50%) STAT PRN IV Hypoglycemia 03/06/17 17:45 04/05/17 17:44 Dextrose/Sodium Chloride 1,000 ml @ 75 mls/hr [id number] IV 03/07/17 06:00 04/06/17 05:59 03/10/17 14:29 Diphenhydramine HCl (Benadryl) 25 mg Q6H PRN ORAL Itching/Pruritis 03/06/17 17:45 04/05/17 17:44 03/08/17 22:12 Docusate Sodium (Colace) 100 mg EVERY 12 HOURS ORAL 03/06/17 21:00 04/05/17 20:59 03/10/17 09:22 Heparin Sodium (Porcine) (Heparin 5000 units/ml) 5,000 units EVERY 12 HOURS SUBQ 03/07/17 21:00 04/06/17 20:59 03/10/17 09:28 Hydromorphone HCl 30 ml @ 0 mls/hr Q24H PRN IV For Pain 03/09/17 13:00 03/11/17 23:59 03/09/17 15:31 Hydromorphone HCl (Dilaudid) 2 mg Q3H PRN SUBQ Severe Pain (Pain Scale 7-10) 03/09/17 12:45 03/11/17 23:59 Hydromorphone HCl (Dilaudid) 2 mg Q4H PRN IVP Moderate Pain (Pain Scale 4-6) 03/09/17 12:45 03/11/17 23:59 Miscellaneous Medication (PLUMBER Rate Change) 1 ea DAILY PRN MISC rate change 03/09/17 11:30 03/11/17 23:59 Miscellaneous Medication (PLUMBER shift volume) 1 ea Q12HR@0700,1900 MISC 03/09/17 19:00 03/11/17 23:59 03/10/17 07:00 Naloxone HCl (Narcan) 0.1 mg PRN IV PER PROTOCOL 03/07/17 12:45 03/11/17 23:59 Ondansetron HCl (Zofran) 4 mg Q6H PRN IVP Nausea & Vomiting 03/07/17 13:00 04/06/17 12:59 03/09/17 09:15 Polyethylene Glycol (Miralax) 17 gm HSPRN PRN ORAL Constipation 03/06/17 21:00 04/05/17 20:59 03/09/17 18:25 Zolpidem Tartrate (Ambien) 5 mg DAILYPRN PRN ORAL Insomnia 03/07/17 21:00 03/14/17 20:59 Allergies: Coded Allergies: SULFA (SULFONAMIDE ANTIBIOTICS) (Verified Allergy, Unknown, 03/06/17) Objective Last Vital Signs Date Time Temp Pulse Resp B/P (MAP) Pulse Ox O2 Delivery O2 Flow Rate FiO2 03/10/17 16:00 98.3 93 18 132/81 97 Room Air 03/07/17 16:10 2.0 Laboratory Tests Test 03/10/17 04:45 White Blood Count 9.8 K/UL (4.8-10.8) Red Blood Count 3.62 M/UL (4.20-5.40) L Hemoglobin 11.8 G/DL (12.0-16.0) L Hematocrit 34.9 % (37.0-47.0) L Mean Corpuscular Volume 97 FL (80-99) Mean Corpuscular Hemoglobin 32.7 PG (27.0-31.0) H Mean Corpuscular Hemoglobin Concent 33.8 G/DL (32.0-36.0) Red Cell Distribution Width 12.6 % (11.6-14.8) Platelet Count 339 K/UL (150-450) Mean Platelet Volume 6.8 FL (6.5-10.1) Neutrophils (%) (Auto) 55.8 % (45.0-75.0) Lymphocytes (%) (Auto) 33.4 % (20.0-45.0) Monocytes (%) (Auto) 8.5 % (1.0-10.0) Eosinophils (%) (Auto) 1.9 % (0.0-3.0) Basophils (%) (Auto) 0.5 % (0.0-2.0) Sodium Level 140 MMOL/L (136-145) Potassium Level 4.1 MMOL/L (3.5-5.1) Chloride Level 105 MMOL/L (98-107) Carbon Dioxide Level 26 MMOL/L (21-32) Anion Gap 9 mmol/L (5-15) Blood Urea Nitrogen 8 mg/dL (7-18) Creatinine 0.7 MG/DL (0.55-1.30) Estimat Glomerular Filtration Rate > 60 mL/min (>60) Glucose Level 98 MG/DL (74-106) Calcium Level 8.7 MG/DL (8.5-10.1) Intake and Output 03/09/17 03/10/17 19:00 07:00 Intake Total 1545 ml 1090 ml Balance 1545 ml 1090 ml Intake Oral 840 ml 340 ml IV Total 705 ml 750 ml # Voids 4 2 Assessment/Plan Assessment/Plan Assessment/Plan Assessment/Plan Problem List: (1) Abscesses of both axillae ICD Codes: L02.411 - Cutaneous abscess of right axilla; L02.412 - Cutaneous abscess of left axilla SNOMED: 59226796 (2) Hidradenitis suppurativa ICD Codes: L73.2 - Hidradenitis suppurativa SNOMED: 25764959 Status: stable Assessment/Plan Appreciate surgery rec's s/p bilateral axillary excision and flap elevation on 03/07/17 Wound care per surgery Cont IV abx F/u cultures Pain control, bowel regimen Supportive care DVT ppx: SCDs FULL CODE D/w pt/family, RN, SW/CM, surgery regarding mgmt and dispo Subjective Subjective Date patient seen: Mar 08, 2017 Time patient seen: 16:00 Constitutional: Reports: no symptoms HEENT: Reports: no symptoms Cardiovascular: Reports: no symptoms Respiratory: Reports: no symptoms Gastrointestinal/Abdominal: Reports: no symptoms Genitourinary: Reports: no symptoms Neurologic/Psychiatric: Reports: no symptoms Endocrine: Reports: no symptoms Hematologic/Lymphatic: Reports: no symptoms Allergies: Coded Allergies: SULFA (SULFONAMIDE ANTIBIOTICS) (Verified Allergy, Unknown, 03/06/17) Subjective No acute o/n events s/p bilateral axillary excision and flap elevation POD#2 Pt doing well. Denies f/c, n/v, d/c, chest pain, SOB Objective Objective Last 24 Hour Vital Signs Date Time Temp Pulse Resp B/P (MAP) Pulse Ox O2 Delivery O2 Flow Rate FiO2 03/08/17 16:22 98.4 92 20 117/72 96 03/08/17 16:14 68 20 98 03/08/17 16:00 18 03/08/17 14:53 18 03/08/17 12:00 18 03/08/17 11:44 98.4 80 20 132/72 96 03/08/17 08:37 98.2 85 20 126/81 96 03/08/17 08:25 18 03/08/17 04:56 98.2 93 19 113/67 96 03/08/17 04:25 18 03/08/17 00:25 18 03/07/17 23:55 98.2 80 18 121/68 96 03/07/17 20:55 98.0 83 19 120/71 96 03/07/17 20:25 19 Intake and Output 03/07/17 03/08/17 19:00 07:00 Intake Total 2075 ml 1185 ml Output Total 100 ml Balance 1975 ml 1185 ml Intake Oral 240 ml 360 ml IV Total 1835 ml 825 ml Output Estimated Blood Loss 100 ml # Voids 3 # Bowel Movements 1 Height (Feet): 5 Height (Inches): 4.00 Weight (Pounds): 225 Objective General: alert, cooperative, no distress, appears stated age Head: normocephalic, without obvious abnormality, atraumatic Eyes: conjunctivae/corneas clear. PERRL, EOM's intact Throat: lips, mucosa, and tongue normal. MMM Neck: supple, symmetrical, trachea midline, and no JVD Lungs: clear to auscultation bilaterally Heart: regular rate and rhythm, S1, S2 normal, no murmur, click, rub or gallop Abdomen: soft, non-tender, non-distended, bowel sounds normal; no masses or organomegaly Extremities: extremities normal, atraumatic, no cyanosis or edema Pulses: 2+ and symmetric Skin: skin color, texture, turgor normal; dressings c/d/i Neurologic: grossly normal, no focal deficits Conor Lopez M.D. Mar 10, 2017 19:02
[2017-03-10] MEDS: PCA HYDROmorphone 1mg/ml 30 ML IV PRN (19:23)
[2017-03-10 20:00] VITALS: BP 146/87
[2017-03-11] VITALS (14 sets, daily range): BP systolic 111–142; BP diastolic 50–81
[2017-03-11] MEDS: ceFAZolin 1gm/50ml Premix 50 ML IV SCH ×3 (02:24→18:16)
[2017-03-11] MEDS: D5 1/2NS 1,000 ML IV SCH ×2 (02:25→17:35)
[2017-03-11] MEDS: PCA shift volume MISC SCH ×2 (07:11→19:00)
[2017-03-11] MEDS ORDERED: LR 1000ml ONE (08:00)
[2017-03-11] MEDS ORDERED: Midazolam 2mg/2ml Inj ONE (08:00)
[2017-03-11] MEDS ORDERED: Sterile Water Irrig 1000ml IRRIG ONE (08:00)
[2017-03-11] MEDS ORDERED: NS Irrig 1000ml ONE (08:00)
[2017-03-11] MEDS ORDERED: Glycopyrrolate 0.2mg/ml 1ml Vial ONE (08:00)
[2017-03-11] MEDS ORDERED: Zemuron 50mg/5ml Inj IV ONE ×2 (08:00)
[2017-03-11] MEDS ORDERED: fentaNYL 100 mcg/2 mL IV ONE (08:00)
[2017-03-11] MEDS ORDERED: Neostigmine 1mg/ml 10ml Inj ONE (08:00)
[2017-03-11] MEDS ORDERED: Ketorolac 30mg Inj ONE (08:00)
[2017-03-11] MEDS ORDERED: Morphine Sulfate 10mg/ml Inj ONE (08:00)
[2017-03-11] MEDS ORDERED: Propofol 200mg/20ml IV ONE ×2 (08:00→09:27)
[2017-03-11] MEDS: Heparin 5000 units/ml inj SUBQ SCH (09:00)
[2017-03-11] MEDS: Docusate 100mg cap ORAL SCH ×2 (09:00→22:00)
[2017-03-11] MEDS ORDERED: Lidocaine 1% 10mg/ml/Epi 0.005mg/ml 30ml vial INJ ONE (09:17)
[2017-03-11] MEDS ORDERED: NeoSporin Gu Irrig 1ml Amp IRRIG ONE (09:17)
[2017-03-11] MEDS ORDERED: Bacitracin 50000 Units Vial ONE (09:17)
--- NOTE | 2017-03-11 09:32 | Pre-Procedure Note/Attestation ---
Pre-Procedure Note/Attestation Complete Prior to Procedure Planned Procedure: bilateral Procedure Narrative: Bilateral axillary wound closures Indications for Procedure Pre-Operative Diagnosis: Bilateral axillary hidradenitis Attestation I attest that I discussed the nature of the procedure; its benefits; risks and complications; and alternatives (and the risks and benefits of such alternatives ), prior to the procedure, with the patient (or the patient's legal floor representative). I attest that, if there was a reasonable possibility of needing a blood transfusion, the patient (or the patient's legal floor representative) was given the [facility] standardized written summary, pursuant to the Prasanna Sarthak Blood Safety Act ([place] Health and Safety Code # 1645, as amended). I attest that I re-evaluated the patient just prior to the surgery and that there has been no change in the patient's H&P, except as documented below: ABEBE ROMEO Mar 11, 2017 09:32
[2017-03-11] MEDS ORDERED: DiphenhydrAMINE 50mg/ml Inj IVP PRN ×2 (09:45→11:00)
[2017-03-11] MEDS ORDERED: PCA Education Pamphlet MISC ONE (09:50)
[2017-03-11] MEDS ORDERED: TransDerm Scop 1mg/72HR Patch TDERMAL ONE (09:55)
[2017-03-11] MEDS ORDERED: Rate Change PCA 1 Each MISC PRN (10:00)
[2017-03-11] MEDS ORDERED: LR 1000ml 1,000 ML IVLG SCH (10:54)
--- NOTE | 2017-03-11 10:54 | Anethesia Preoperative Eval ---
Anesthesia Pre-op PMH/ROS General Date of Evaluation: Mar 11, 2017 Time of Evaluation: 09:50 Anesthesiologist: Aracelis ASA Score: ASA 1 Mallampati Score Class I : Soft palate, uvula, fauces, pillars visible Class II: Soft palate, uvula, fauces visible Class III: Soft palate, base of uvula visible Class IV: Only hard plate visible Mallampati Classification: Class II Surgeon: Dorothy Diagnosis: Recurrent HS Surgical Procedure: Revision and closure of bilateral axillary wounds Anesthesia History: none Family History: no anesthesia problems Allergies: Coded Allergies: SULFA (SULFONAMIDE ANTIBIOTICS) (Verified Allergy, Unknown, 03/06/17) Past Medical History Cardiovascular: Denies: HTN, CAD, [place], valve dz, arrhythmia, other Pulmonary: Denies: asthma, COPD, OLGA, other Gastrointestinal/Genitourinary: Reports: GERD, Denies: CRI, ESRD, other Neurologic/Psychiatric: Reports: depression/anxiety, Denies: dementia, CVA, TIA, other Endocrine: Denies: DM, hypothyroidism, steroids, other HEENT: Denies: cataract (L), cataract (R), glaucoma, TETLIN (L), TETLIN (R), other Hematology/Immune: Denies: anemia, DVT, bleeding disorder, other Musculoskeletal/Integumentary: Reports: other - Recurrent HS, Denies: OA, RA, DJD, DDD, edema Other: obesity PMH Narrative: as above PSxH Narrative: Excision of bilateral axillary HS Anesthesia Pre-op Phys. Exam Physician Exam Last Vital Signs Date Time Temp Pulse Resp B/P (MAP) Pulse Ox O2 Delivery O2 Flow Rate FiO2 03/11/17 08:00 97.5 86 18 138/81 97 03/11/17 04:48 Room Air 03/07/17 16:10 2.0 Constitutional: NAD Neurologic: CN 2-12 intact Cardiovascular: RRR, no M/R/G Respiratory: CTA Gastrointestinal: other - obesity Airway Exam Mallampati Score: Class II MO: full Neck: flexible ROM: full Teeth: intact Dentures: no upper, no lower Anesthesia Pre-op A/P Labs see chart Risk Assessment & Plan Assessment: ASA 2 Plan: GA with ETT PONV prevention Scopolamine patch on. Status Change Before Surgery: No Pre-Antibiotics Drug: Ancef 1 gr. Given Within 1 Hr of Incision: Yes Time Given: 10:12 CHARLY AVILA M.D. Mar 11, 2017 10:54
[2017-03-11] MEDS ORDERED: Meperidine 50mg/ml Inj(FOR RIGORS ONLY) IV PRN ×2 (11:00)
[2017-03-11] MEDS ORDERED: Hydromorphone 0.5mg/0.5ml inj IVP PRN (11:00)
[2017-03-11] MEDS ORDERED: Ketorolac 30mg Inj IV PRN (11:00)
[2017-03-11] MEDS ORDERED: Midazolam 2mg/2ml Inj IVP PRN (11:00)
--- NOTE | 2017-03-11 13:06 | Operative Note - PDOC ---
Operative Note Operative Note Pre-op Diagnosis: Bilateral axillary hidradenitis Procedure: Bilateral axillary wound closure Surgeon: Dorothy Accounts Payable Associate: Lewis Specimen: yes Complications: none Condition: stable Drains: none Implant(s) used?: No ABEBE ROMEO Mar 11, 2017 13:06
--- NOTE | 2017-03-11 13:20 | Immediate Post-Op Evaluation ---
Immediate Post-Op Evalulation Immediate Post-Op Evalulation Procedure: Revision and closure of bilateral axillary wounds Date of Evaluation: Mar 11, 2017 Time of Evaluation: 13:18 IV Fluids: 1300 Blood Products: none Estimated Blood Loss: 100 Urinary Output: none Blood Pressure Systolic: 140 Blood Pressure Diastolic: 58 Pulse Rate: 94 Respiratory Rate: 20 O2 Sat by Pulse Oximetry: 98 Temperature (Fahrenheit): 97.7 Pain Score (1-10): 2 Nausea: No Vomiting: No Complications none Patient Status: reacts, patent, extubated, none Hydration Status: adequate CHARLY AVILA M.D. Mar 11, 2017 13:20
[2017-03-11] MEDS: PCA HYDROmorphone 1mg/ml 30 ML IV PRN (13:57)
--- NOTE | 2017-03-11 15:32 | General Progress Note ---
Assessment/Plan Problem List: (1) Abscesses of both axillae ICD Codes: L02.411 - Cutaneous abscess of right axilla; L02.412 - Cutaneous abscess of left axilla SNOMED: 12283341 (2) Hidradenitis suppurativa ICD Codes: L73.2 - Hidradenitis suppurativa SNOMED: 79331460 Status: stable Assessment/Plan Appreciate plastic surgery rec's s/p bilateral axillary excision and flap elevation on 03/07/17 s/p bilateral axillary wound closure on 03/11/17 Wound care per surgery Cont IV abx F/u cultures Pain control, bowel regimen Supportive care DVT ppx: SCDs, HSQ FULL CODE D/w pt/family, RN, SW/CM, surgery regarding mgmt and dispo Subjective Date patient seen: Mar 11, 2017 Time patient seen: 15:32 ROS Limited/Unobtainable: No Constitutional: Reports: no symptoms HEENT: Reports: no symptoms Cardiovascular: Reports: no symptoms Respiratory: Reports: no symptoms Gastrointestinal/Abdominal: Reports: no symptoms Genitourinary: Reports: no symptoms Neurologic/Psychiatric: Reports: no symptoms Endocrine: Reports: no symptoms Hematologic/Lymphatic: Reports: no symptoms Allergies: Coded Allergies: SULFA (SULFONAMIDE ANTIBIOTICS) (Verified Allergy, Unknown, 03/06/17) All Systems: reviewed and negative except above Subjective No acute o/n events s/p bilateral axillary excision and flap elevation POD4 s/p bilateral axillary wound closure today Seen immediately postop, feeling somewhat dizzy/motion sickness. Denies f/c, n/v , d/c, chest pain, SOB Objective Last 24 Hour Vital Signs Date Time Temp Pulse Resp B/P (MAP) Pulse Ox O2 Delivery O2 Flow Rate FiO2 03/11/17 14:43 98.9 86 18 129/51 98 Nasal Cannula 3.0 03/11/17 14:40 16 03/11/17 14:30 88 18 131/63 98 Nasal Cannula 3.0 03/11/17 14:27 98.9 03/11/17 14:25 14 03/11/17 14:15 88 18 131/60 98 Nasal Cannula 3.0 03/11/17 14:10 14 03/11/17 14:06 97.6 03/11/17 14:05 83 17 132/68 98 Nasal Cannula 3.0 03/11/17 13:57 20 03/11/17 13:50 80 22 133/64 98 Nasal Cannula 3.0 03/11/17 13:35 94 18 136/67 98 Nasal Cannula 3.0 03/11/17 13:25 93 19 135/63 98 Nasal Cannula 3.0 03/11/17 13:20 84 20 140/50 97 Simple Mask 6.0 03/11/17 13:20 94 20 98 03/11/17 13:15 97.6 96 20 142/59 97 Simple Mask 6.0 03/11/17 08:00 97.5 86 18 138/81 97 03/11/17 04:48 98.0 83 18 124/67 100 Room Air 03/11/17 03:53 18 03/11/17 00:00 18 03/11/17 00:00 98.1 100 18 111/65 100 Room Air 03/10/17 20:00 97.4 89 18 146/87 97 Room Air 03/10/17 20:00 18 03/10/17 19:23 18 03/10/17 16:00 18 03/10/17 16:00 98.3 93 18 132/81 97 Room Air Intake and Output 03/10/17 03/11/17 19:00 07:00 Intake Total 340 ml 675 ml Balance 340 ml 675 ml Intake Oral 340 ml IV Total 675 ml # Voids 3 2 Height (Feet): 5 Height (Inches): 4.00 Weight (Pounds): 225 Objective General: alert, cooperative, no distress, appears stated age Head: normocephalic, without obvious abnormality, atraumatic Eyes: conjunctivae/corneas clear. PERRL, EOM's intact Throat: lips, mucosa, and tongue normal. MMM Neck: supple, symmetrical, trachea midline, and no JVD Lungs: clear to auscultation bilaterally Heart: regular rate and rhythm, S1, S2 normal, no murmur, click, rub or gallop Abdomen: soft, non-tender, non-distended, bowel sounds normal; no masses or organomegaly Extremities: extremities normal, atraumatic, no cyanosis or edema Pulses: 2+ and symmetric Skin: skin color, texture, turgor normal; dressings c/d/i Neurologic: grossly normal, no focal deficits Wijegunaratsherif,Kanishka M.D. Mar 11, 2017 15:32
--- NOTE | 2017-03-11 19:00 | Operative Note - Dictated ---
DATE OF OPERATION: 03/11/2017 PREOPERATIVE DIAGNOSIS: Bilateral open axillary wounds. POSTOPERATIVE DIAGNOSIS: Bilateral open axillary wounds. PROCEDURE: 1. Preparation of left axillary wound measuring 15 x 10 cm for wound closure. 2. Secondary closure of left axillary wound. 3. Preparation of right axillary wound for closure measuring 14 x 8 cm. 4. Secondary closure with flap advancement of right axillary wound. SURGEON: Ifrah De La Cruz M.D. COMPUTER SYSTEMS CONSULTANT: Isabell Saucedo M.D. ANESTHESIA: General. COMPLICATIONS: None. DRAINS: A size 15 ESTEFANÍA on both sides. DISPOSITION: Stable to the recovery room. INDICATIONS FOR SURGERY: This is a 26-year-old female, who is status post excision of bilateral axillary hidradenitis, stage III who underwent the excision four days ago. At the same time, she underwent elevation of the lateral chest wall flaps for definitive flap closure. The wounds were not closed at the initial operation because there was significant amount of purulent fluid present following the excision. She has since undergone daily wet-to-dry dressing changes at the bedside and has also been on IV antibiotics and her wounds, all look clean and ready for closure by secondary mobilization of the flaps that had been previously elevated. She understands the risks and benefits of surgery and agrees to proceed. DETAILS OF THE OPERATION: The patient was brought to the operating room and laid in the supine position on the operating room table. Her bilateral axilla were prepped and draped in a sterile and usual fashion. We first began on the left side where the wound was copiously irrigated with pulse lavage and some of the nonviable tissues at the edges were trimmed and in so doing, we prepared the wound for flap transfer secondary closure. The flap that had been previously elevated was once again taken off the wound bed from its donor location and it was noted to be well perfused, as there was punctate bleeding at the flap edges after the areas were abraded and we noted that the flap once again be easily transferred into the defect, hence that the dimensions of the defect quite well on that side. Once the wound was again copiously irrigated with pulse lavage, hemostasis was achieved. A size 15 ESTEFANÍA was placed and the flap was then transferred into the wound and closed using #0 and 2-0 Vicryl sutures and the donor site was closed using similar sutures and peterson were used to close the skin. This completed the secondary closure of this side. We then turned our attention to the contralateral right axilla where the wound again was irrigated with pulse lavage and we debrided some of the nonviable tissue to prepare the wound for definitive flap transfer. Once hemostasis was noted to be achieved, the flap was reelevated and was noted to be well perfused with no evidence of ischemic changes since the initial operation was noted to be fitting the defect quite well. We did have to perform some excision of the [place] tissue on the right arm to allow for better flap positioning and this was done using a #10 blade and electrocautery was used to achieve hemostasis. The flap was then inset using #0 and 2-0 Vicryl sutures and the donor site was also closed with the same sutures and peterson were used to close the skin. A size 15 ESTEFANÍA had also been placed and this completed the secondary closure of the right axillary wound as well. The patient tolerated the procedure well. There was no complications. All needle and sponge counts were correct at the end of the case. Ifrah De La Cruz M.D. DR: MONY JOB#: [id number] CC:
[2017-03-12] VITALS: BP 106/46
[2017-03-12] MEDS ORDERED: Naloxone 0.4mg/ml Inj IVP PRN (00:30)
[2017-03-12] MEDS: D5 1/2NS 1,000 ML IV SCH ×3 (02:07→20:56)
[2017-03-12] MEDS: ceFAZolin 1gm/50ml Premix 50 ML IV SCH ×3 (02:07→17:23)
[2017-03-12 04:00] VITALS: BP 100/59
[2017-03-12] MEDS: PCA shift volume MISC SCH ×2 (07:54→19:27)
[2017-03-12 08:00] VITALS: BP 106/65
[2017-03-12] MEDS: Docusate 100mg cap ORAL SCH ×2 (09:28→20:56)
[2017-03-12] MEDS: Heparin 5000 units/ml inj SUBQ SCH ×2 (09:33→21:00)
[2017-03-12] MEDS ORDERED: Ketorolac 30mg Inj ONE (09:47)
[2017-03-12] MEDS ORDERED: Propofol 200mg/20ml IV ONE (09:47)
[2017-03-12] MEDS ORDERED: Morphine Sulfate 10mg/ml Inj ONE (09:47)
[2017-03-12] MEDS ORDERED: Sterile Water Irrig 1000ml IRRIG ONE (09:47)
[2017-03-12] MEDS ORDERED: Glycopyrrolate 0.2mg/ml 1ml Vial ONE (09:47)
[2017-03-12] MEDS ORDERED: Zemuron 50mg/5ml Inj IV ONE (09:47)
[2017-03-12] MEDS ORDERED: fentaNYL 100 mcg/2 mL IV ONE (09:47)
[2017-03-12] MEDS ORDERED: Succinylcholine 20mg/ml 10ml vial ONE (09:47)
[2017-03-12] MEDS ORDERED: NS Irrig 1000ml ONE (09:47)
[2017-03-12] MEDS ORDERED: Neostigmine 1mg/ml 10ml Inj ONE (09:47)
[2017-03-12] MEDS ORDERED: Midazolam 2mg/2ml Inj ONE (09:47)
[2017-03-12] MEDS ORDERED: LR 1000ml ONE (09:47)
[2017-03-12 11:53] VITALS: BP 125/79
--- NOTE | 2017-03-12 13:13 | General Progress Note ---
Progress Note Progress Note Pt seen and examined. POD# 1 from flap closure of the axilla. Doing Ok. Dressings CDI Will get a PICC line today. ABEBE Lanza MD Mar 12, 2017 13:13
--- NOTE | 2017-03-12 14:05 | 48 Hour Post Anesthesia Eval ---
Post Anesthesia Evaluation Procedure: Revision and closure of bilateral axillary wounds Date of Evaluation: Mar 12, 2017 Time of Evaluation: 14:40 Blood Pressure Systolic: 125 0: 79 Pulse Rate: 96 Respiratory Rate: 18 Temperature (Fahrenheit): 97.7 O2 Sat by Pulse Oximetry: 99 Airway: patent Nausea: No Vomiting: No Pain Intensity: 3 If pain is > 6 Comment: Patient waiting for PIC line. Advised her to ask for pain meds PO or IM Hydration Status: adequate Cardiopulmonary Status: Stable Mental Status/LOC: patient returned to baseline Follow-up Care/Observations: As per surgery Post-Anesthesia Complications: No anesthetic complication Follow-up care needed: N/A SHEILA BRAR M.D. Mar 12, 2017 14:05
[2017-03-12 16:00] VITALS: BP 115/72
[2017-03-12] MEDS: PCA HYDROmorphone 1mg/ml 30 ML IV PRN (18:06)
--- NOTE | 2017-03-12 19:14 | General Progress Note ---
Assessment/Plan Problem List: (1) Abscesses of both axillae ICD Codes: L02.411 - Cutaneous abscess of right axilla; L02.412 - Cutaneous abscess of left axilla SNOMED: 51211275 (2) Hidradenitis suppurativa ICD Codes: L73.2 - Hidradenitis suppurativa SNOMED: 39781695 Assessment/Plan Appreciate plastic surgery rec's s/p bilateral axillary excision and flap elevation on 03/07/17 s/p bilateral axillary wound closure on 03/11/17 Wound care per surgery Cont IV abx F/u cultures Pain control, bowel regimen Supportive care DVT ppx: SCDs, HSQ FULL CODE D/w pt/family, RN, SW/CM, surgery regarding mgmt and dispo Subjective Date patient seen: Mar 12, 2017 Time patient seen: 19:11 ROS Limited/Unobtainable: No Constitutional: Denies: no symptoms, chills, diaphoresis, fever, malaise, weakness, other HEENT: Denies: no symptoms, eye pain, blurred vision, tearing, double vision, ear pain, ear discharge, nose pain, nose congestion, throat pain, throat swelling, mouth pain, mouth swelling, other Cardiovascular: Denies: no symptoms, chest pain, edema, irregular heart rate, lightheadedness, palpitations, syncope, other Respiratory: Denies: no symptoms, cough, orthopnea, shortness of breath, SOB with excertion, SOB at rest, sputum, stridor, wheezing, other Gastrointestinal/Abdominal: Reports: abdominal pain Genitourinary: Reports: pain Neurologic/Psychiatric: Denies: no symptoms, anxiety, depressed, emotional problems, headache, numbness, paresthesia, pre-existing deficit, seizure, tingling, tremors, weakness, other Endocrine: Denies: no symptoms, excessive sweating, flushing, intolerance to cold, intolerance to heat, increased hunger, increased thirst, increased urine, unexplained weight gain, unexplained weight loss, other Hematologic/Lymphatic: Denies: no symptoms, anemia, easy bleeding, easy bruising, other Allergies: Coded Allergies: SULFA (SULFONAMIDE ANTIBIOTICS) (Verified Allergy, Unknown, 03/06/17) Subjective No acute overnight events. Had significant pain last night requiring NIGHT SHIFT, also with some nausea, no robyn vomiting Objective Last 24 Hour Vital Signs Date Time Temp Pulse Resp B/P (MAP) Pulse Ox O2 Delivery O2 Flow Rate FiO2 03/12/17 16:00 100.0 96 18 115/72 99 03/12/17 14:05 96 18 99 03/12/17 12:00 16 03/12/17 11:53 97.7 96 18 125/79 99 03/12/17 08:00 99.4 86 18 106/65 100 03/12/17 08:00 16 03/12/17 04:00 16 03/12/17 04:00 99.2 92 18 100/59 96 03/12/17 00:01 Room Air 03/12/17 00:00 16 03/12/17 00:00 98.8 70 19 106/46 100 03/11/17 20:01 Room Air 03/11/17 20:00 97.8 77 18 131/78 98 03/11/17 20:00 16 Intake and Output 03/11/17 03/12/17 19:00 07:00 Intake Total 1875 ml 1160 ml Output Total 140 ml 44 ml Balance 1735 ml 1116 ml Intake Oral 200 ml 360 ml IV Total 1675 ml 800 ml Output Drainage Total 40 ml 44 ml Estimated Blood Loss 100 ml # Voids 2 2 Height (Feet): 5 Height (Inches): 4.00 Weight (Pounds): 225 Objective General: alert, cooperative, no distress, appears stated age Head: normocephalic, without obvious abnormality, atraumatic Eyes: conjunctivae/corneas clear. PERRL, EOM's intact Throat: lips, mucosa, and tongue normal. MMM Neck: supple, symmetrical, trachea midline, and no JVD Lungs: clear to auscultation bilaterally Heart: regular rate and rhythm, S1, S2 normal, no murmur, click, rub or gallop Abdomen: soft, non-tender, non-distended, bowel sounds normal; no masses or organomegaly Extremities: upper extremity dressings c/d/i, +drains, no surrounding erythema Pulses: 2+ and symmetric Skin: skin color, texture, turgor normal; no rashes or lesions Neurologic: grossly normal, no focal deficits EMILY MOLINA Mar 12, 2017 19:14
[2017-03-12 20:00] VITALS: BP 121/70
[2017-03-13 00:10] VITALS: BP 111/57
[2017-03-13] MEDS: ceFAZolin 1gm/50ml Premix 50 ML IV SCH ×3 (02:05→18:12)
[2017-03-13 04:00] VITALS: BP 102/57
[2017-03-13] MEDS: PCA shift volume MISC SCH ×2 (07:33→19:00)
[2017-03-13] MEDS ORDERED: Naloxone 0.4mg/ml Inj IVP PRN (07:56)
[2017-03-13] MEDS ORDERED: PCA HYDROmorphone 1mg/ml 30 ML IV PRN (07:58)
[2017-03-13 08:00] VITALS: BP 121/84
[2017-03-13] MEDS ORDERED: Rate Change PCA 1 Each MISC PRN (08:00)
[2017-03-13] MEDS: Docusate 100mg cap ORAL SCH ×2 (09:14→20:52)
[2017-03-13] MEDS: Heparin 5000 units/ml inj SUBQ SCH ×2 (09:15→20:54)
[2017-03-13] MEDS: D5 1/2NS 1,000 ML IV SCH ×2 (09:16→20:53)
[2017-03-13 12:00] VITALS: BP 134/70
[2017-03-13] MEDS ORDERED: D5 1/2NS 1000ml IV ONE (14:10)
[2017-03-13 16:00] VITALS: BP 126/79
--- NOTE | 2017-03-13 18:12 | General Progress Note ---
Assessment/Plan Problem List: (1) Abscesses of both axillae ICD Codes: L02.411 - Cutaneous abscess of right axilla; L02.412 - Cutaneous abscess of left axilla SNOMED: 63695755 (2) Hidradenitis suppurativa ICD Codes: L73.2 - Hidradenitis suppurativa SNOMED: 86976612 Assessment/Plan Appreciate plastic surgery rec's s/p bilateral axillary excision and flap elevation on 03/07/17 s/p bilateral axillary wound closure on 03/11/17 Wound care per surgery Cont IV abx F/u cultures Pain control, bowel regimen Supportive care DVT ppx: SCDs, HSQ FULL CODE D/w pt/family, RN, SW/CM, surgery regarding mgmt and dispo Subjective Date patient seen: Mar 13, 2017 Time patient seen: 18:09 ROS Limited/Unobtainable: No Allergies: Coded Allergies: SULFA (SULFONAMIDE ANTIBIOTICS) (Verified Allergy, Unknown, 03/06/17) Subjective No acute overnight events. Pain better controlled, no nausea, no robyn vomiting Objective Last 24 Hour Vital Signs Date Time Temp Pulse Resp B/P (MAP) Pulse Ox O2 Delivery O2 Flow Rate FiO2 03/13/17 16:00 18 03/13/17 16:00 97.8 91 20 126/79 98 03/13/17 12:00 18 03/13/17 12:00 98.2 90 20 134/70 96 03/13/17 08:00 18 03/13/17 08:00 97.7 84 20 121/84 97 03/13/17 04:00 97.8 92 16 102/57 95 Room Air 03/13/17 04:00 16 03/13/17 00:10 98.0 95 16 111/57 97 Room Air 03/13/17 00:00 16 03/12/17 20:00 98.1 97 18 121/70 98 Room Air 03/12/17 20:00 16 Intake and Output 03/12/17 03/13/17 19:00 07:00 Intake Total 835 ml 1262.5 ml Output Total 20 ml 2018 ml Balance 815 ml -755.5 ml Intake Oral 600 ml 500 ml IV Total 235 ml 762.5 ml Output Urine Total 2000 ml Drainage Total 20 ml 18 ml # Voids 3 Height (Feet): 5 Height (Inches): 4.00 Weight (Pounds): 225 Objective General: alert, cooperative, no distress, appears stated age Head: normocephalic, without obvious abnormality, atraumatic Eyes: conjunctivae/corneas clear. PERRL, EOM's intact Throat: lips, mucosa, and tongue normal. MMM Neck: supple, symmetrical, trachea midline, and no JVD Lungs: clear to auscultation bilaterally Heart: regular rate and rhythm, S1, S2 normal, no murmur, click, rub or gallop Abdomen: soft, non-tender, non-distended, bowel sounds normal; no masses or organomegaly Extremities: upper extremity dressings c/d/i, +drains, no surrounding erythema Pulses: 2+ and symmetric Skin: skin color, texture, turgor normal; no rashes or lesions Neurologic: grossly normal, no focal deficits EMILY MOLINA Mar 13, 2017 18:12
[2017-03-13 20:00] VITALS: BP 132/73
[2017-03-14] VITALS: BP 103/59
[2017-03-14] MEDS: ceFAZolin 1gm/50ml Premix 50 ML IV SCH ×3 (02:31→18:21)
[2017-03-14 04:00] VITALS: BP 119/68
[2017-03-14] MEDS: PCA shift volume MISC SCH (07:14)
[2017-03-14 08:00] VITALS: BP 107/60
[2017-03-14] MEDS: Docusate 100mg cap ORAL SCH ×2 (08:49→21:16)
[2017-03-14] MEDS: Heparin 5000 units/ml inj SUBQ SCH ×2 (08:59→21:22)
--- NOTE | 2017-03-14 09:53 | General Progress Note ---
Progress Note Progress Note Pt seen and examined. Doing well. POD # 3 from flap closure of axillary wounds. Flaps look well and alive. Plan on dc Drains in Am. Possible dc tomorrow. MD AGUEDA Mcelroy AMIR Mar 14, 2017 09:53
[2017-03-14] MEDS: D5 1/2NS 1,000 ML IV SCH (11:50)
[2017-03-14 12:00] VITALS: BP 136/73
[2017-03-14 16:00] VITALS: BP 126/70
[2017-03-14] MEDS ORDERED: oxyCODONE HCL/Acetaminophen 5/325mg ORAL PRN (16:30)
--- NOTE | 2017-03-14 16:34 | General Progress Note ---
Assessment/Plan Problem List: (1) Abscesses of both axillae ICD Codes: L02.411 - Cutaneous abscess of right axilla; L02.412 - Cutaneous abscess of left axilla SNOMED: 93377979 (2) Hidradenitis suppurativa ICD Codes: L73.2 - Hidradenitis suppurativa SNOMED: 51314066 Assessment/Plan Appreciate plastic surgery rec's s/p bilateral axillary excision and flap elevation on 03/07/17 s/p bilateral axillary wound closure on 03/11/17 Wound care per surgery Cont IV abx F/u cultures Pain control, bowel regimen Supportive care DVT ppx: SCDs, HSQ FULL CODE D/w pt/family, RN, SW/CM, surgery regarding mgmt and dispo Subjective Date patient seen: Mar 14, 2017 Time patient seen: 16:33 ROS Limited/Unobtainable: No Allergies: Coded Allergies: SULFA (SULFONAMIDE ANTIBIOTICS) (Verified Allergy, Unknown, 03/06/17) Subjective No acute overnight events. Pain better controlled, no nausea, no robyn vomiting Objective Last 24 Hour Vital Signs Date Time Temp Pulse Resp B/P (MAP) Pulse Ox O2 Delivery O2 Flow Rate FiO2 03/14/17 12:00 98.2 78 18 136/73 97 03/14/17 12:00 16 03/14/17 08:00 18 03/14/17 08:00 98.5 86 18 107/60 96 03/14/17 04:00 98.3 89 18 119/68 97 03/14/17 04:00 18 03/14/17 00:00 98.4 89 18 103/59 96 03/13/17 23:47 18 03/13/17 20:00 98.6 94 18 132/73 99 03/13/17 20:00 18 03/13/17 18:45 97.8 Intake and Output 03/13/17 03/14/17 19:00 07:00 Intake Total 8715 ml 1152.5 ml Output Total 10 ml Balance 8715 ml 1142.5 ml Intake Oral 240 ml 240 ml IV Total 8475 ml 912.5 ml Drainage Total 10 ml # Voids 3 3 Height (Feet): 5 Height (Inches): 4.00 Weight (Pounds): 225 Objective General: alert, cooperative, no distress, appears stated age Head: normocephalic, without obvious abnormality, atraumatic Eyes: conjunctivae/corneas clear. PERRL, EOM's intact Throat: lips, mucosa, and tongue normal. MMM Neck: supple, symmetrical, trachea midline, and no JVD Lungs: clear to auscultation bilaterally Heart: regular rate and rhythm, S1, S2 normal, no murmur, click, rub or gallop Abdomen: soft, non-tender, non-distended, bowel sounds normal; no masses or organomegaly Extremities: upper extremity dressings c/d/i, +drains, no surrounding erythema Pulses: 2+ and symmetric Skin: skin color, texture, turgor normal; no rashes or lesions Neurologic: grossly normal, no focal deficits EMILY MOLINA Mar 14, 2017 16:34
[2017-03-14] MEDS ORDERED: HYDROmorphone 1mg/ml Carpuject IVPB PRN (18:15)
[2017-03-14] MEDS ORDERED: HYDROMORPHONE IVPB PRN (18:15)
[2017-03-14 20:42] VITALS: BP 112/71
[2017-03-15] VITALS: BP 105/65
[2017-03-15] MEDS: D5 1/2NS 1,000 ML IV SCH (00:40)
[2017-03-15] MEDS: ceFAZolin 1gm/50ml Premix 50 ML IV SCH ×2 (00:44→10:00)
[2017-03-15 04:00] VITALS: BP 110/70
[2017-03-15 08:34] VITALS: BP 121/79
[2017-03-15] MEDS: Docusate 100mg cap ORAL SCH (09:05)
[2017-03-15] MEDS: Heparin 5000 units/ml inj SUBQ SCH (09:06)
[2017-03-15] MEDS ORDERED: PERCOCET 5-3251 EACH ORAL (10:48)
--- NOTE | 2017-03-15 10:50 | Discharge Summary ---
Discharge Summary Hospital Course Date of Admission Mar 06, 2017 at 16:58 Date of Discharge Mar 15, 2017 Admitting Diagnosis axillary abscesses Reason for Hospitalization: as above HPI Antionette Meza is a 26 year old female who was admitted on Mar 06, 2017 at 16: 58 for axillary abscesses Consultations Plastic surgery Procedures See operative reports Hospital Course 26 y/o female with multiple axillary abscesses, s/p I+D and skin grafting without any periop or postop complications. After adequate wound care and pain control, she was cleared to be dced home, was dc home with Home health, abx and pain meds, she will f/u her surgeon in 1-2 weeks as outpt. Discharge Medications Continued Medications: ["Bcp"] () Discharge Discharge Disposition Patient was discharged to home with home health Discharge Diagnoses: (1) Abscesses of both axillae EMILY MOLINA Mar 15, 2017 10:50
[2017-03-15] MEDS ORDERED: CEPHALEXIN500 MG ORAL (10:52)
[2017-03-15] MEDS ORDERED: Tubing IV Secondary IV ONE (11:51)
[2017-03-15] MEDS ORDERED: D5 1/2NS 1000ml IV ONE (11:51)
== END 2017-03-15 11:52 | disposition home health service (06) | DRG 572 ==
LOC: EDBEDREQ 15:59 → EMR 16:45 → 3E 16:58 → EDBEDREQ 17:00 → 3E 19:55
DX: L02.412 Cutaneous abscess of left axilla (principal); E66.01 Morbid (severe) obesity due to excess calories; L73.2 Hidradenitis suppurativa; L02.411 Cutaneous abscess of right axilla; Z88.2 Allergy status to sulfonamides
CPT/HCPCS: 36415; 80048; 80053; 81003; 81025; 83605; 85025; 85610; 85730; 86850; 86900; 86901; 87040; 93005; 94003; 94150; 99285; J2250; J2405; J2710